=== PATIENT | female | born 2005 | race Caucasian/White ===

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

== ENCOUNTER 2024-05-15 07:00 | Outpatient (RCR) | payer OTHER, SELFPAY ==
--- NOTE | 2024-03-25 09:53 | HP.PTEVAL_ITS ---
Patient's Visit Information Visit Information Visit Information: MONSERRAT ROBERTS is a 19 year old F referred to Physical Therapy by Benjamin Schultz PA-C with a diagnosis of PATELLOFEMERAL DISORDER ,LEFT KNEE ,PAIN LEFT KNEE. Date of Evaluation: 03/25/24 Physical Therapist: Eulalio Jang, PT, Cert MDT, OCS Visit Plan Frequency: 2x /Week Duration: 4 Weeks Plan: PT INTERVENTIONS QUADS/HAMS /HIP ( GLUT MEDIUS ) , CLOSED CHAIN STRENGTHENING ,PROPRIOCEPTION ,AND FUNCTIONAL STRENGTHENING Subjective Subjective: This 19 y/o female presents to physical therapy with left knee pain. Patient developed left knee pain ~ 1 month. Patient symptoms where insidious onset. Patient seen Nathan BOOTHE at [facility]. Patient had x-rays and ordered a brace,. Pain located anterior knee. Aggravating squatting,extended standing , walking ,kneeling and stairs. Alleviating factors ibuprofen . Denies paresthesia/tingling. Sleeping okay. Patient has no injury in past. Patient condition affects QOL and job demands. Patient goals decrease pain.Patient has orthotics. SOCIAL: SINGLE VOCATION: Hairdresser Pain Left Knee: Pain Intensity (Out of 10): 2 Pain Intensity Range: 10 Objective Objective: POSTURE: bilateral knee valgus ,pes planus ,genu recurvatum GAIT: reciprocal pattern slight knee valgus PALAPTION: unremarkable QUAD CONTRACTION: lateral deviation AROM: supine knee flexion 0-135 degrees MMT: 4/5 quads/hams .hip flexion ( peak force) hip abd 25.8 left ,right 28.1 SLS squats: knee valgus left Special Tests R Knee Saundra - Meniscus: Negative R Knee Valgus - MCL: Negative R Knee Varus - LCL: Negative R Knee Patellar Apprehension - PFS: Positive R Knee Patellar Grind - PFS: Negative Balance/Special Test Scores Lower Extremity Functional Score: 59 Goals Goal 1:: Patient to be I with HEP knee Goal Time Frame: 4-6 Weeks Goal 2:: Patient to 75% improvement with increase function and less pain Goal Time Frame: 4-6 Weeks Goal 3:: Patient improve LFES score by 5-10 points to improve QOL and function Goal Time Frame: 4-6 Weeks Goal 4:: Patient to improve peak force of glut medius ny 5-10 # to decrease pain and improved function Goal Time Frame: 4-6 Weeks Rehabilitation Potential Physical Therapy Diagnosis: 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 ,weakness hip glut ,lateral tilting patella and tracking with quad contraction and pain with activity thus benefit from skilled PT Rehabilitation Potential: Good Anticipated Interventions Patient/Client Instruction: Educate patient on: Condition and Plan of Care For the Purpose of:: To decrease pain, To increase ROM, To improve muscle performance and motor function, To improve ability to perform ADL's, To increase tolerance to activity/condition/position, To improve ability of physical actions for home/community/work/leisure, To improve health of tissue, To decrease soft tissue restriction, To increase flexibility/ROM, To improve endurance and To improve balance Therapeutic Exercise to Include: Strength training, Endurance training, Balance training, Flexibilty training and Active ROM Comment: QUADS/HAMS/HIP GLUT MEDIUS For the Purpose of:: To decrease pain, To increase ROM, To improve muscle performance and motor function, To increase tolerance to activity/condition/position, To improve ability of physical actions for home/community/work/leisure, To improve health of tissue, To decrease soft tissue restriction, To increase flexibility/ROM and To improve balance Text: Thank you for the opportunity to evaluate your patient. For Medicare and Medicare HMO plans, please review the plan of care and approve it. It will need to be FAXED BACK to us at [phone] for Medicare purposes. For Medicare only, by signing this I certify the plan of care. Please let me know if there are questions or concerns regarding this plan of care. Physician Signature: Date:
--- NOTE | 2024-05-15 08:09 | HP.PTDCSUM ---
Discharge Summary D/C summary: It has been my pleasure to treat MONSERRAT ROBERTS referred by Benjamin Schultz PA-C, with the diagnosis of PATELLOFEMERAL DISORDER ,LEFT KNEE ,PAIN LEFT KNEE for a total of 15 visit(s). Discharge Date: Please see the following information for a summary of their discharge status. Subjective Subjective: Doing well Pain Left Knee: Pain Intensity (Out of 10): 0 Overall Improvement % Improvement: 90 Objective Objective/Function: POSTURE: bilateral knee valgus ,pes planus ,genu recurvatum GAIT: reciprocal pattern slight knee valgus PALAPTION: unremarkable QUAD CONTRACTION: lateral deviation AROM: supine knee flexion 0-135 degrees MMT: 4/5 quads/hams .hip flexion ( peak force) hip abd 32.68 left ,right 35.1 SLS squats: knee valgus left Goals Goal 1:: Patient to be I with HEP knee Goal Progress: Goal Met Goal 2:: Patient to 75% improvement with increase function and less pain Goal Progress: Goal Met Goal 3:: Patient improve LFES score by 5-10 points to improve QOL and function Goal Progress: Goal Met Goal 4:: Patient to improve peak force of glut medius ny 5-10 # to decrease pain and improved function Goal Progress: Goal Met Plan Plan: D/C TO GYM AND HEP D/C Information d/c sentence: If there are questions or concerns regarding this patient's physical therapy, please feel free to call me at [phone]. Thank you for the referral of this patient. Sincerely, Eulaloi Jang, PT, Cert MDT, OCS Balance/Gait/Functional tests Balance/Special Test Scores Lower Extremity Functional Score: 80 Improvement % Improvement: 90
== END 2024-05-15 13:24 | disposition home or self-care (01) ==
LOC: PT 07:00
PROVIDERS: PCP Pediatrics; Referring Provider Physician Assistant Surgical; Visit Provider Physician Assistant Surgical
DX: M22.2X2 Patellofemoral disorders, left knee (principal); M25.562 Pain in left knee
CPT/HCPCS: 97110; 97162; 97530

== ENCOUNTER → 2025-04-19 | Outpatient (CLI) | payer OTHER, SELFPAY ==
[2025-04-19 17:27] LABS: Hematocrit 44.1 % (37-47); Hemoglobin 14.2 g/dL (12.0-15.0); Immature Granulocytes Count 0.020 X10^3/uL (0.0-0.0); Mean Corp Hgb Conc 32.2 g/dL (32-36); Mean Corpuscular Volume 87.8 fL (81-99); Mean Platelet Vol. 10.7 fl (6.2-12.0); NRBC Flagged by Analyzer 0 % (0-5); Platelet Count 476 K/mm3 (150-450); RBC Distribution Width CV 12.1 % (11.6-14.6); RBC Distribution Width SD 38.8 fl (35.1-43.9); Red Blood Count 5.02 M/mm3 (4.2-5.4); White Blood Count 7.8 K/mm3 (4.4-11.0)
[2025-04-22 07:08] LABS: Chlamydia By Nucleic Acid AMP Positive (Negative); Gonococcus By Nucleic Acid AMP Negative (Negative)
== END | disposition home or self-care (01) ==
PROVIDERS: PCP Pediatrics; Visit Provider Obstetrics & Gynecology
DX: R63.5 Abnormal weight gain (principal); Z11.3 Encounter for screening for infections with a predominantly sexual mode of transmission; Z12.4 Encounter for screening for malignant neoplasm of cervix
CPT/HCPCS: 36415; 84439; 84443; 85025; 86376; 87491; 87591; 88175; G0145

== ENCOUNTER → 2025-05-28 | Outpatient (CLI) | payer OTHER, SELFPAY ==
--- OUTSIDE RECORDS SUMMARY | 2025-05-28 17:15 | XMS RPT_ITS | CCD ---
Author Organization [facility] Care Team Providers Care Personnel Scheduler Name Role Phone VIOLET SOLIS Attending Unavailable VIOLET SOLIS Referring Unavailable MICKY ANDERSEN Attending Unavailable VIOLET SOLIS Attending Unavailable MICKY ANDERSEN Attending Unavailable Unavailable Primary Care Provider Unavailabl e REFERRED, SELF Referring Unavailable PACKER, PAPI A Primary Care Unavailable JENNA GARCIA Attending Unavailable PAPI APCKER A Attending Unavailable PACKER, PAPI A Primary Care Unavailable REFERRED, SELF Referring Unavailable Unavailable Primary Care Provider Unavailabl e XU LUQUE Attending Unavailable LUQUEXU Attending Unavailable Packer, Papi Primary Care Unavailable EshenaurNathan Attending Unavailable Eshenaur, Ray Referring Unavailable Packer, Papi Primary Care Unavailable Esha Valentino Attending Unavailable MarcanthEsha moreno Attending Unavailable Packer, Papi Primary Care Unavailable Packer, Papi Referring Unavailable Packer, Papi Primary Care Unavailable Packer, Papi Referring Unavailable Esha Valentino Attending Unavailable Packer, Papi Primary Care Unavailable Packer, Papi Referring Unavailable Esha Valentino Attending Unavailable Allergies Allergy Classification Reported Allergen(s) Allergy Type Date of Onset Reaction(s) Facility (2 sources) Grass pollen; Translations: [grass pollen] Allergy to substance 2 UNKNOWN [facility] (2 sources) Tree and shrub pollen; Translations: [tree and shrub pollen] Allergy to substance 2 UNKNOWN [facility] (6 sources) cat dander; Translations: [cat dander] Allergy to substance 9 Unknown [facility] (1 source) dog dander Allergy to substance 2 UNKNOWN [facility] (5 sources) Other Propensity to adverse reactions 2 [facility] (1 source) Seasonal allergy; Translations: [SEASONAL ALLERGIES] Propensity to adverse reactions (disorder) 2 [facility] (4 sources) Grass pollen Drug Allergy 9 [facility] (4 sources) Pollen Propensity to adverse reactions 2 [facility] (4 sources) Dog Epithelium (Canis Lupus Familiaris) Allergy to substance 9 [facility] (1 source) dog dander Drug allergy (disorder) 5 [facility] Repository Medications Current Medications Medication Drug Class(es) Dates Sig (Normalized) Sig (Original) [id number] 200 actuat albuterol 0.09 mg/actuat metered dose inhaler (7 sources) beta2-Adrenergic Agonist Start: 10-19-2022 albuterol HFA 90 mcg/act inhaler 10/19/2022 Active Start: 10-05-2021 take 1 puff(s) by in halation every six hours Albuterol Sulfate (Proair Hfa) 90 mcg/actuation HFA aerosol inhaler Active 2 PUFF INHALATION EVERY 6 HOURS October 04, 2021 11:00pm Start: 09-25-2018 End: 06-20-2019 take 1 puff(s) by inhalation twice daily Albuterol Sulfate Discontinued 2 PUFF INHALATION TWICE A DAY September 24, 2018 11:00pm June 20, 2019 9:40am breath-actuated 120 actuat beclomethasone dipropionate 0.08 mg/actuat metered dose inhaler (4 sources) Corticosteroid Start: 05-18-2024 Qvar RediHaler 80 MCG/ACT inhaler Inhale 80 mcg 2 times daily. 05/18/2024 Active Drospirenone-Ethinyl Estradiol (9 sources) Progestin, Estrogen Start: 05-02-2023 Drospireno ne-Ethinyl Estradiol (Aparna (28)) 3-0.02 mg tablet Active 1 TABLET PO daily May 02, 2023 1:14pm Take active pills only for continuous cycling. Start: 02-21-2023 Aparna 3-0.02 M G tablet Daily as needed 02/21/2023 Active Start: 02-21-2023 End: 05-02-2023 Drospirenone-Ethinyl Estradi ol (Aparna (28)) 3-0.02 mg tablet Discontinued 1 TABLET PO daily February 21, 2023 6:53am May 02, 2023 1:14pm Start: 01-01-2022 End: 02-21-2023 Drospirenone-Ethinyl Estradi ol (Aparna (28)) 3-0.02 mg tablet Discontinued 1 TABLET PO daily January 01, 2022 1:57pm February 21, 2023 6:53am Start: 10-05-2021 End: 01-01-2022 Drospirenone-Ethinyl Estradi ol (Aparna (28)) 3-0.02 mg tablet Discontinued 1 TABLET PO daily October 04, 2021 11:00pm January 01, 2022 1:58pm Ethinyl Estradiol / Levonorgestrel (4 sources) Progestin, Estrogen, Progestin-containing Intrauterine Device Start: 07-06-2024 levonorgestrel-ethinyl estradiol (Seasonale) 0.15-0.03 MG tablet Take 1 tablet by mouth daily. 07/06/2024 Active 120 actuat fluticasone propionate 0.22 mg/actuat metered dose inhaler (7 sources) Corticosteroid Start: 02-19-2023 take 2 puff(s) by inhalation in the morning fluticasone (Flovent) 220 MCG/ACT inhaler Inhale 2 puffs in the morning and 2 puffs in the evening. 02/19/2023 Active Start: 10-05-2021 take 100 ug by inhal ation every twelve hours Fluticasone Propionate (Flovent Diskus) 100 mcg/actuation blister with device Active 2 INH INHALATION Q12H October 04, 2021 11:00pm Start: 09-25-2018 End: 10-05-2021 take 1 puff(s) by inhalation every four hours as needed Flovent 110 Mcg Discontinued 2 PUFF INHALATION EVERY 4 HOURS NEEDED September 24, 2018 11:00pm October 05, 2021 9:25am hydrocortisone 0.025 mg/mg topical ointment (1 source) Corticosteroid Start: 10-05-2021 Hydrocortisone Active 1 APPLIC TOPICAL TWICE A DAY 28.35 October 04, 2021 11:00pm loratadine 10 mg oral tablet (10 sources) Start: 10-05-2021 take 1 tablet by mouth once daily Loratadine (Claritin) 10 mg tablet Active 10 MG PO DAILY October 04, 2021 11:00pm take 1 tablet by mouth once elizabeth y loratadine (Claritin Reditabs) 10 MG disintegrating tablet Take 10 mg by mouth daily. Active magnesium oxide 400 mg oral tablet (5 sources) Start: 12-19-2022 take 1 tablet by mouth at bedtime magnesium oxide (Mag-Ox) 400 mg tablet Take 400 mg by mouth at bedtime. 12/19/2022 Active montelukast 10 mg oral tablet (11 sources) Leukotriene Receptor Antagonist Start: 06-15-2024 take 1 tablet by mouth once daily montelukast (Singulair) 10 MG tablet Take 10 mg by mouth Nightly. 06/15/2024 Active Start: 10-05-2021 take 1 tablet by jason th once daily Montelukast (Singulair) 10 mg tablet Active 10 MG PO DAILY October 04, 2021 11:00pm Start: 09-25-2018 End: 10-05-2021 take 5 mg by mouth once daily Singulair Discontinued 5 MG PO DAILY September 24, 2018 11:00pm October 05, 2021 9:25am naproxen 500 mg oral tablet (11 sources) Nonsteroidal Anti-inflammatory Drug Start: 10-05-2021 End: 02-21-2023 take 500 mg by mouth at mealtime Naproxen Active 500 MG PO 2 to 3 times per day 60 February 21, 2023 6:53am administer with food or milk take 1 tablet by jason th twice daily at mealtime naproxen (Naprosyn) 500 MG tablet Take 5 00 mg by mouth 2 times daily (with meals). Active ondansetron 4 mg disintegrating oral tablet (6 sources) Serotonin-3 Receptor Antagonist Start: 12-13-2022 take 2 tablets by mouth every twenty-four hours as needed ondansetron ODT (Zofran-ODT) 4 MG disintegrating tablet Take 8 mg by mouth Daily as needed 12/13/2022 Active Start: 09-25-2018 End: 06-20-2019 take 4 mg by mouth every eight hours as needed Ondansetron Discontinued 4 MG PO EVERY 8 HOURS NEEDED September 24, 2018 11:00pm June 20, 2019 9:40am oxymetazoline hydrochloride 10 mg/ml topical cream (4 sources) Start: 12-02-2023 Rhofade 1 % cr eam Apply 1 Application topically daily. 12/02/2023 Active riboflavin 100 mg oral tablet (5 sources) Start: 12-19-2022 riboflavin (vi tamin B2) 100 mg tablet tablet Take 400 mg by mouth in the morning. 12/19/2022 Active rimegepant 75 mg disintegrating oral tablet (13 sources) Start: 07-28-2024 End: 07-28-2025 take 1 tablet by mouth once daily as needed, then take 1 tablet by mouth every twenty-four hours as needed Rimegepant Sulfate (Nurtec) 75 MG tablet dispersible Indications: Migraine Dissolve 1 tablet (75 mg) by mouth once daily at onset of symptoms as needed for migraine treatment. Max dose: 75 mg in 24 hours. 24 tablet 3 11/13/2024 10:03 AM EDT 08/11/2024 Active Start: 05-08-2024 End: 07-28-2024 Nurtec 75 MG tablet dispersi ble 05/08/2024 07/28/2024 Discontinued (Reorder) Start: 03-16-2024 End: 04-15-2024 take 1 tablet by mouth every twenty-four hours as needed Rimegepant Sulfate (Nurtec) 75 MG tablet dispersible Indications: Migraine without aura and without status migrainosus, not intractable (CMS/HCC) Take 75 mg by mouth Daily as needed (1 tablet daily as needed for onset of migraine, max 1 dose in 24 hours.) 8 tablet 2 03/16/2024 04/15/2024 Active Completed/Discontinued Medications Medication Drug Class(es) Dates Sig (Normalized) Sig (Original) azithromycin 250 mg oral tablet (1 source) Macrolide Antimicrobial Start: 09-25-2018 End: 06-20-2019 take 2 tablets by mouth once daily, then take 1 tablet by mouth once daily Azithromycin Discontinued 250 MG PO DIRECTED September 24, 2018 11:00pm June 20, 2019 9:40am TAKE 2 TABLETS 1ST DAY THEN 1 TABLET DAILY FOR NEXT 4 DAYS. predniSONE 20 mg oral tablet (1 source) Start: 06-20-2019 End: 06-25-2019 take 20 mg by mouth once daily Prednisone Discontinued 20 MG PO DAILY 5 June 20, 2019 12:00am June 25, 2019 12:08am rizatriptan 10 mg oral tablet (5 sources) Serotonin-1b and Serotonin-1d Receptor Agonist Start: 06-10-2023 End: 05-08-2024 rizatriptan (Maxalt) 10 MG tablet Indications: Migraine without aura and without status migrainosus, not intractable (CMS/HCC) Take 1 tablet (10 mg) by mouth 1 (one) time if needed for migraine (may repeat x1) May repeat in 2 hours if unresolved. Do not exceed 30 mg in 24 hours. 9 tablet 2 06/10/2023 05/08/2024 Discontinued SUMAtriptan 100 mg oral tablet (5 sources) Serotonin-1b and Serotonin-1d Receptor Agonist Start: 04-01-2023 End: 05-08-2024 take 1 tablet by mouth once SUMAtriptan (Imitrex) 100 MG tablet Indications: Migraine without aura and without status migrainosus, not intractable (CMS/HCC) Take 1 tablet (100 mg) by mouth 1 (one) time if needed for migraine (may repeat x1) for up to 27 doses. 9 tablet 2 04/01/2023 05/08/2024 Discontinued Problems Problem Classification Problem Date Documented Da te Episodic/Chronic Abdominal hernia (1 source) Hiatal hernia; Translations: [Diaphragmatic hernia without obstruction or gangrene] 10-05-2021 Episodic Allergic reactions (1 source) Allergic condition; Translations: [Allergy, unspecified, initial encounter] 10-05-2021 Episodic Asthma (1 source) Asthma; Translations: [Unspecified asthma, uncomplicated] 10-05-2021 Chronic Headache; including migraine (16 sources) Migraine without aura, not refractory ; Translations: [Migraine without aura, not intractable, without status migrainosus] Onset: 04-01-2023 05-08-2024 Chronic Menstrual disorders (1 source) Dysmenorrhea; Translations: [Dysmenorrhea, unspecified] 01-01-2022 Chronic Other nutritional; endocrine; and metabolic disorders (1 source) Abnormal weight gain; Translations: [Abnormal weight gain] Onset: 04-25-2025 Episodic Results Test Name Value Interpretation Reference Range Facility PAP I-G w/rfx hrHPV-Aptimaon 04-23-2025 ADEQ Comment Normal . [facility] Comment on above: Order Comment: Speci men Comment: [id number] Specimen Comment: No. of containers..01 ThinPrep Vial Result Comment: Sati sfactory for evaluation. Endocervical and/or squamous metaplastic cells (endocervical component) are present. Performed By: #### L 7000.1800, L7400.0353 #### [facility] [address] [place], [address] COMM . Normal . [facility] Comment on above: Order Comment: Speci men Comment: [id number] Specimen Comment: No. of containers..01 ThinPrep Vial Performed By: #### L 7000.1800, L7400.0353 #### [facility] [address] [place], [address] COMMENT Comment Normal . [facility] Comment on above: Order Comment: Speci men Comment: [id number] Specimen Comment: No. of containers..01 ThinPrep Vial Result Comment: This liquid based ThinPrep(R) pap test was interpreted using the Windeln.de(R) Genius(TM) Cervical Algorithm whole slide imaging system. Performed By: #### L 7000.1800, L7400.0353 #### [facility] [address] [place], [address] DIAG Comment Normal . [facility] Comment on above: Order Comment: Speci men Comment: [id number] Specimen Comment: No. of containers..01 ThinPrep Vial Result Comment: NEGA TIVE FOR INTRAEPITHELIAL LESION OR MALIGNANCY. Performed By: #### L 7000.1800, L7400.0353 #### [facility] [address] [place], [address] HPV RFLX Comment Normal . [facility] Comment on above: Order Comment: Speci men Comment: [id number] Specimen Comment: No. of containers..01 ThinPrep Vial Result Comment: The HPV DNA reflex criteria were not met with this specimen result therefore, no HPV testing was performed. Performed at: - [facility] [address] [place] [id number] [employer] Member: Koki Martinez MD, Phone: [phone] Performed By: #### L 7000.1800, L7400.0353 #### [facility] [address] [place], [address] PAPSMR Comment Normal . [facility] Comment on above: Order Comment: Speci men Comment: [id number] Specimen Comment: No. of containers..01 ThinPrep Vial Result Comment: The Pap smear is a screening test designed to aid in the detection of premalignant and malignant conditions of the uterine cervix. It is not a diagnostic procedure and should not be used as the sole means of detecting cervical cancer. Both false-positive and false-negative reports do occur. Performed By: #### L 7000.1800, L7400.0353 #### [facility] [address] [place], [address] PERFORM Comment Normal . [facility] Comment on above: Order Comment: Speci men Comment: [id number] Specimen Comment: No. of containers..01 ThinPrep Vial Result Comment: Aysha Espinosa, Supervisor [employer] (ASCP) Performed By: #### L 7000.1800, L7400.0353 #### [facility] [address] [place], [address] Chlamydia/GC KRISTOPHER aptimaon CHLAMY,NUC ACID Positive Abnormal Negative [facility] Comment on above: Result Comment: Clie nt Requested Flag Performed By: #### L 7000.1800, L7400.0353 #### [facility] [address] [place], [address] GC BY NUC ACID Negative Normal Negative [facility] Comment on above: Result Comment: Perf ormed at: = - [facility] [address], [place] [id number] [employer] Member: Koki Martinez MD, Phone: [phone] Performed By: #### L 7000.1800, L7400.0353 #### [facility] [address] [place], [address] Thyroid Peroxidase ABon - THYR PEROX AB 12 IU/mL Normal 0-34 [facility] Comment on above: Result Comment: Perf ormed at: - [facility] [address] [id number] [employer] Member: Bassem Mayberry PhD, Phone: [phone] Performed By: #### L 501.9520, L100.0100, L3300.6900, L506.0400 #### [facility] [address] [place], [address] CBC W/Diff, Automatedon 03-25 Absolute Lymph 2.36 X10 3/uL Normal 0.83-4.51 [facility] Comment on above: Performed By: #### L 501.9520, L100.0100, L3300.6900, L506.0400 #### [facility] [address] [place], [address] Absolute Neut 4.4 X10 3/uL Normal 2.0-7.7 [facility] Comment on above: Performed By: #### L 501.9520, L100.0100, L3300.6900, L506.0400 #### [facility] [address] [place], [address] Basophils/100 WBC (Bld) 0.6 % Normal 0-1 [facility] Comment on above: Performed By: #### L 501.9520, L100.0100, L3300.6900, L506.0400 #### [facility] [address] [place], [address] Eosinophils/100 WBC (Bld) 4.1 % Normal 0-5 [facility] Comment on above: Performed By: #### L 501.9520, L100.0100, L3300.6900, L506.0400 #### [facility] [address] [place], [address] Erythrocyte distribution width (RBC) [Ratio] 12.1 % Normal 11.6-14.6 [facility] Comment on above: Performed By: #### L 501.9520, L100.0100, L3300.6900, L506.0400 #### [facility] [address] [place], [address] Hematocrit (Bld) [Volume fraction] 44.1 % Normal 37-47 [facility] Comment on above: Performed By: #### L 501.9520, L100.0100, L3300.6900, L506.0400 #### [facility] [address] [place], [address] Hemoglobin (Bld) [Mass/Vol] 14.2 g/dL Normal 12.0-15.0 [facility] Comment on above: Performed By: #### L 501.9520, L100.0100, L3300.6900, L506.0400 #### [facility] [address] [place], [address] IG% 0.300 Normal 0.0-0.9 [facility] Comment on above: Result Comment: IG% - Immature Granulocytes (promyelocytes, myelocytes and metamyelocytes) > 1% indicates that a LEFT SHIFT is Present. Performed By: #### L 501.9520, L100.0100, L3300.6900, L506.0400 #### [facility] [address] [place], [address] Lymphocytes/100 WBC (Bld) 30.5 % Normal 19-41 [facility] Comment on above: Performed By: #### L 501.9520, L100.0100, L3300.6900, L506.0400 #### [facility] [address] [place], [address] MCH (RBC) [Entitic mass] 28.3 pg Normal 27.0-32.0 [facility] Comment on above: Performed By: #### L 501.9520, L100.0100, L3300.6900, L506.0400 #### [facility] [address] [place], [address] MCHC (RBC) [Mass/Vol] 32.2 g/dL Normal 32-36 [facility] Comment on above: Performed By: #### L 501.9520, L100.0100, L3300.6900, L506.0400 #### [facility] [address] [place], [address] MCV (RBC) [Entitic vol] 87.8 fL Normal 81-99 [facility] Comment on above: Performed By: #### L 501.9520, L100.0100, L3300.6900, L506.0400 #### [facility] [address] [place], [address] Monocytes/100 WBC (Bld) 7.7 % Normal 0-10 [facility] Comment on above: Performed By: #### L 501.9520, L100.0100, L3300.6900, L506.0400 #### [facility] [address] [place], [address] Neutrophils/100 WBC (Bld) 56.8 % Normal 47-70 [facility] Comment on above: Performed By: #### L 501.9520, L100.0100, L3300.6900, L506.0400 #### [facility] [address] [place], [address] Nucleated RBC (Bld) [#/Vol] 0 10*3/uL Normal 0-5 [facility] Comment on above: Performed By: #### L 501.9520, L100.0100, L3300.6900, L506.0400 #### [facility] [address] [place], [address] Platelet mean volume (Bld) [Entitic vol] 10.7 fL Normal 6.2-12.0 [facility] Comment on above: Performed By: #### L 501.9520, L100.0100, L3300.6900, L506.0400 #### [facility] [address] [place], [address] Platelets (Bld) [#/Vol] 476 10*3/uL High 150-450 [facility] Comment on above: Performed By: #### L 501.9520, L100.0100, L3300.6900, L506.0400 #### [facility] [address] [place], [address] RBC (Bld) [#/Vol] 5.02 10*6/uL Normal 4.2-5.4 [facility] Comment on above: Performed By: #### L 501.9520, L100.0100, L3300.6900, L506.0400 #### [facility] [address] [place], [address] RDW SD 38.8 fl Normal 35.1-43.9 [facility] Comment on above: Performed By: #### L 501.9520, L100.0100, L3300.6900, L506.0400 #### [facility] [address] [place], [address] WBC (Bld) [#/Vol] 7.8 10*3/uL Normal 4.4-11.0 [facility] Comment on above: Performed By: #### L 501.9520, L100.0100, L3300.6900, L506.0400 #### [facility] [address] [place], [address] [facility] Visit Reporton 04-19-2025 [facility] Visit Report [facility] [address], [address] [place] [address] OFFICE VISIT Date of Service: 04/19/25 MR#: [id number] Acct: [id number] Name: ABEBE DIAMOND Rep #: [id number] 29 : 2005 Provider: Dr. Esha hoffmann MD Age/Sex: 20/F Location: [facility] Status: Signed Intake Vital Signs 06/26/24 11:13 04/19/25 13:32 04/19/25 13:46 Height 5 ft 2 in 5 ft 2 in Weight: 156 lb 174 lb 4 oz BMI 28.5 31.8 BP 142/106 H 152/102 H 139/99 H Intake Visit Reasons: Annual (CHAIR) [employer] Required: No Is patient in pain?: Yes (back pain from injury) Allergies cat dander Allergy (Mild, Verified 04/19/25 13:34) UNKNOWN dog dander Allergy (Mild, Verified 04/19/25 13:34) UNKNOWN grass pollen Allergy (Mild, Verified 04/19/25 13:34) UNKNOWN tree and shrub pollen Allergy (Mild, Verified 04/19/25 13:34) UNKNOWN Medications ???Medication ???Instructions ???Recorded ???Confirmed ???Type albuterol sulfate 90 mcg/actuation 2 puff inhalation Q6H PRN 04/19/25 History aerosol inhaler (ProAir HFA) loratadine 10 mg tablet (Claritin) 10 mg PO DAILY 10/05/21 04/19/25 History montelukast 10 mg tablet 10 mg PO DAILY 10/05/21 04/19/25 H istory (Singulair) naproxen 500 mg tablet 500 mg PO BID-TID PRN pain #60 tab s 02/21/23 04/19/25 Rx rimegepant 75 mg disintegrating 75 mg PO ONCE PRN 04/08/24 5 History tablet (Nurtec ODT) beclomethasone dipropionate 80 1 inh inhalation BID 10/27/25 10/2 7/25 History mcg/actuation HFA breath activated aerosol (Qvar RediHaler) Is last menstrual period known: No Post menopausal: No Patient : No : No PFSH Medical History (Updated 04/19/25 @ 13:[address] Esha Valentino MD) Migraine headache Asthma Surgical History S/P wisdom tooth extraction History of placement of ear tubes S/P tonsillectomy and adenoidectomy Family History Other Hypertension Social History (Updated 04/19/25 @ 13:38 by Delmy Borja) household members: family number of children: 0 current occupational status: employed current occupation: Nanny, retail department manager hairdresser sexually active: No Smoking Status: Never smoker alcohol intake: never substance use type: does not use caffeine: Yes what type of physical activity do you participate in: other details: cheerleading, marching band seatbelt use: always do you feel safe at home: Yes additional social history: Single HPI Encounter for routine gynecological examination Details: ABEBE DIAMOND is a 20 year old who presents for annual exam. Last PAP: due today History of abnormal PAP: Last mammogram: History of abnormal mammogram: not due Colon cancer screening: not due Other preventative health care screenings: PCP [facility] Female Reproductive History Cycle Length: >35 Questions: metrorrhagia: No, sexually active: Yes, dyspareunia: No and PCB: No Menopausal Symptoms: No hot flashes, No night sweats, No weight change, No mood changes, No difficulty concentrating, No sleep problems and No change in libido ROS Const Constitutional: Reports as per HPI; Denies fatigue, increased appetite, poor appetite, night sweats, weight gain or weight loss Cardio Card: Denies chest pain Resp Resp: Denies cough or dyspnea GI GI: Reports as per HPI; Denies abdominal pain, bloating, constipation, nausea or vomiting : Reports as per HPI and other; Denies difficulty voiding, dysuria, hematuria, hot flashes, nipple discharge, pelvic pain, prolapse symptoms, urinary frequency, urinary incontinence, urinary urgency, vaginal discharge, vaginal dryness, vaginal odor or vaginal pruritus Skin Skin/Breast: Denies changing lesions, breast mass, breast pain, breast skin changes or nipple discharge Psych Psych: Denies anxiety, change in libido, depression or difficulty concentrating Exam Const General: cooperative, healthy appearing, comfortable, no acute distress, well developed and well groomed [facility] Head: normal to inspection and normocephalic Ears: hearing grossly normal bilaterally and external ears normal Nose: external nose normal Face and sinus: normal facial exam Neck Neck: normal visual inspection, full ROM and no lymphadenopathy Thyroid: thyroid normal Chest Chest palpation inspection: normal inspection of the chest Breast inspection: normal inspection of the breasts and normal inspection of the axillae Breast palpation: normal palpation of the breasts, normal palpation of the axillae and no axillary lymphadenopathy Resp Effort Inspection: normal respiratory effort GI Inspection: normal to inspection and non-distended Palpation: soft, no hepatosple (more content not included)... Normal [facility] T4 Free Directon 04-19-2025 T4 FREE DIRECT 0.90 ng/dL Normal 0.76-1.46 [facility] Comment on above: Performed By: #### L 501.9520, L100.0100, L3300.6900, L506.0400 #### [facility] [address] [facility] [place], [address] Thyroid Stim Hormone (TSH)on 04-19-2025 TSH 3.360 uIU/mL Normal 0.300-4.200 [facility] Comment on above: Performed By: #### L 501.9520, L100.0100, L3300.6900, L506.0400 #### [facility] [address] [place], [address] Office Visiton 01-26-2025 Follow-up visit [id number] Santo Diamond 2005 F Date Provider Department Center 01/26/2025 [id number] ADHIKARI [facility] P None No family history on file Level of Service:28284 [facility] OFFICE/OUTPATIENT ESTABLISHED LOW MDM 20 MIN Reason for Visit and Comments: Follow-up [579018] Migraine [920486] Normal [facility] Progress Noteon 01-26-2025 Progress Note Department of Neurol ogical Sciences Visit Note CHIEF COMPLAINT: Chief Complaint Patient presents with Follow-up Migraine Main diagnoses: Migraine without aura, not intractable HISTORY OF PRESENT ILLNESS: The patient is a 19 y.o. female today presents to the Neurology clinic with history of migraine without aura, not intractable. Today patient presented to the neurology clinic for a follow-up visit. Patient reports that she has been doing very well. Patient did have approximately 2-3 migraines a month and she did take Nurtec with 100% efficacy. She denied any side effect from medication. Patient tried to follow a low tyramine diet. Evidently patient tried to avoid caffeine. Patient denied any other neurological symptoms. Secundary diagnoses: Asthma Medications: Current Medications[1] Allergies: Pollen extract, Cat dander, Dog epithelium (canis lupus familiaris), and Grass pollen(k-o-r-t-swt charmaine) Social History: Social History Socioeconomic History Marital status: Single Spouse name: Not on file Number of children: Not on file Years of education: Not on file Highest education level: Not on file Occupational History Not on file Tobacco Use Smoking status: Never Smokeless tobacco: Never Substance and Sexual Activity Alcohol use: Not on file Drug use: Not on file Sexual activity: Not on file Other Topics Concern Not on file Social History Narrative Not on file Social Drivers of Health Financial Resource Strain: Not on file Food Insecurity: Not on file Transportation Needs: Not on file Physical Activity: Not on file Stress: Not on file Social Connections: Not on file Intimate Partner Violence: Not on file Housing Stability: Not on file Family History: Family History[2] REVIEW OF SYSTEMS: Review of Systems Constitutional: Positive for fatigue. HENT: Negative. Phonophobia Eyes: Positive for photophobia and visual disturbance. Respiratory: Negative. Cardiovascular: Negative. Gastrointestinal: Positive for nausea. Endocrine: Negative. Genitourinary: Negative. Musculoskeletal: Positive for neck pain and neck stiffness. Skin: Negative. Allergic/Immunologic: Negative. Neurological: Positive for dizziness, light-headedness and headaches. Hematological: Negative. Psychiatric/Behavioral: The patient is nervous/anxious. PHYSICAL EXAM: Vitals: BP 134/87 Pulse 67 Temp 37.2 ?C (98.9 ?F) (Infrared) Physical Exam Constitutional: Appearance: Normal appearance. HENT: Head: Normocephalic and atraumatic. Nose: Nose normal. Mouth/Throat: Mouth: Mucous membranes are moist. Pharynx: Oropharynx is clear. Eyes: General: Vision grossly intact. Gaze aligned appropriately. Extraocular Movements: Extraocular movements intact. Conjunctiva/sclera: Conjunctivae normal. Pupils: Pupils are equal, round, and reactive to light. Neck: Trachea: Trachea and phonation normal. Cardiovascular: Rate and Rhythm: Normal rate and regular rhythm. Pulses: Normal pulses. Heart sounds: Normal heart sounds. Pulmonary: Effort: Pulmonary effort is normal. Breath sounds: Normal breath sounds. Abdominal: General: Abdomen is flat. Bowel sounds are normal. Palpations: Abdomen is soft. Musculoskeletal: General: Normal range of motion. Cervical back: Normal range of motion and neck supple. Skin: General: Skin is warm and dry. Neurological: General: No focal deficit present. Mental Status: She is alert and oriented to person, place, and time. Mental status is at baseline. Cranial Nerves: Cranial nerves 2-12 are intact. Deep Tendon Reflexes: Reflexes are normal and symmetric. Reflex Scores: Tricep reflexes are 2+ on the right side and 2+ on the left side. Bicep reflexes are 2+ on the right side and 2+ on the left side. Brachioradialis reflexes are 2+ on the right side and 2+ on the left side. Patellar reflexes are 2+ on the right side and 2+ on the left side. Achilles reflexes are 2+ on the right side and 2+ on the left side. Psychiatric: Attention and Perception: Attention normal. Mood and Affect: Mood normal. Speech: Speech normal. Behavior: Behavior normal. Behavior is cooperative. Thought Content: Thought content normal. Cognition and Memory: Cognition normal. Judgment: Judgment normal. Impression: Diagnosis Plan 1. Migraine without aura and without status migrainosus, not intractable Plan: 1. Patient appears to be doing well we are going to maintain patient on Nurtec at the same doses. 2. New prescription was sent to [facility] retail pharmacy. 3. Patient will continue a low tyramine diet. 4. Patient will return to the neurology clinic in 1 year for further evaluation Xu Luque MD [1] Current Outpatient Medications Medication Sig Dispense Refill levonorgestrel-ethinyl estradiol (Seasonale) 0.15-0.03 MG tablet Take 1 tablet by mouth daily. loratadine (Claritin Reditabs) 10 MG disintegrat (more content not included)... [facility] 36on 08-11-2024 36 Requested Prescripti ons Signed Prescriptions Disp Refills Rimegepant Sulfate (Nurtec) 75 MG tablet dispersible 24 tablet 3 Sig: Dissolve 1 tablet (75 mg) by mouth once daily at onset of symptoms as needed for migraine treatment. Max dose: 75 mg in 24 hours. Authorizing Provider: LEONOR ISIDRO [facility] 36on 08-07-2024 36 SHSP working on PA [facility] 36on 08-06-2024 36 Name of caller: Robb marcus Contact phone number: [phone] Relationship to Patient: family member mother Provider: Dr Luque Practice: Neurology Chief Complaint/Reason for Call: Prior authorization is required for Nurtec 75 MG tablet dispersible Please send prior authorization or contact pt or Shannon to discuss. Best time of day caller can be reached: Any Patient advised that office/PCP has 24-48 business hours to return their call: Yes [facility] Office Visiton 07-28-2024 Follow-up visit [id number] Santo Diamond 2005 F Date Provider Department Center 07/28/2024 [id number] LUQUE [facility] None No family history on file Level of Service:98910 [facility] OFFICE/OUTPATIENT NEW LOW MDM 30 MINUTES Reason for Visit and Comments: New Patient [542] - Migraines [facility] Progress Noteon 07-28-2024 Progress Note Department of Neurol ogical Sciences Initial Consult Note CHIEF COMPLAINT: Chief Complaint Patient presents with New Patient Migraines Reason for Consult: Migraine without aura, no intractable HISTORY OF PRESENT ILLNESS: The patient is a 19 y.o. female who presents with history of migraine without aura, intractable. Today patient presented to the neurology clinic for evaluation and treatment of her migraine headaches. Patient reports that currently she is doing very well. She only had 1 or 2 migraines a month. Medication MarchApril 2024 patient have very frequent migraine headaches. 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 Patient denies change jobs and moved to a new hair salon and patient is significantly more relaxed. Since then patient headaches are improved significantly. In the past patient have an MRI of the brain which were reported to be normal. Patient is taking Nurtec for the acute episode of headaches and she reported that works at least 80% of the time. She denied any side effect from medication. Patient headaches are usually bilateral throbbing, associated with photophobia phonophobia and nausea. At time patient is unable to work during the headache. Patient have had positive family history of migraine headaches. Her mother has also migraines. Patient denied any auras. Patient denied any other medical problems. Patient reported that she is trying to avoid food that can cause headaches.. Past Medical History: No past medical history on file. Past Surgical History: No past surgical history on file. Medications: Current Outpatient Medications Medication Sig Dispense Refill levonorgestrel-ethinyl estradiol (Seasonale) 0.15-0.03 MG tablet Take 1 tablet by mouth daily. loratadine (Claritin Reditabs) 10 MG disintegrating tablet Take 10 mg by mouth daily. montelukast (Singulair) 10 MG tablet Take 10 mg by mouth Nightly. naproxen (Naprosyn) 500 MG tablet Take 500 mg by mouth 2 times daily (with meals). Qvar RediHaler 80 MCG/ACT inhaler Inhale 80 mcg 2 times daily. Rhofade 1 % cream Apply 1 Application topically daily. Nurtec 75 MG tablet dispersible Take 1 tablet (75 mg) by mouth Once as needed (migraine). 8 tablet 11 No current facility-administered medications for this visit. Allergies: Pollen extract, Cat dander, Dog epithelium (canis lupus familiaris), and Grass pollen(k-o-r-t-swt charmaine) Social History: Social History Socioeconomic History Marital status: Single Spouse name: Not on file Number of children: Not on file Years of education: Not on file Highest education level: Not on file Occupational History Not on file Tobacco Use Smoking status: Never Smokeless tobacco: Never Substance and Sexual Activity Alcohol use: Not on file Drug use: Not on file Sexual activity: Not on file Other Topics Concern Not on file Social History Narrative Not on file Social Drivers of Health Financial Resource Strain: Not on file Food Insecurity: Not on file Transportation Needs: Not on file Physical Activity: Not on file Stress: Not on file Social Connections: Not on file Intimate Partner Violence: Not on file Housing Stability: Not on file Family History: No family history on file. REVIEW OF SYSTEMS: Review of Systems Constitutional: Positive for fatigue. HENT: Negative. Phonophobia Eyes: Positive for photophobia and visual disturbance. Respiratory: Negative. Cardiovascular: Negative. Gastrointestinal: Positive for nausea. Endocrine: Negative. Genitourinary: Negative. Musculoskeletal: Positive for neck pain and neck stiffness. Skin: Negative. Allergic/Immunologic: Negative. Neurological: Positive for dizziness, light-headedness and headaches. Hematological: Negative. Psychiatric/Behavioral: The patient is nervous/anxious. PHYSICAL EXAM: Vitals: BP 125/88 Pulse 84 Ht 5' 2 (1.575 m) Wt 155 lb (70.3 kg) BMI 28.35 kg/m? Physical Exam Constitutional: Appearance: Normal appearance. HENT: Head: Normocephalic and atraumatic. Nose: Nose normal. Mouth/Throat: Mouth: Mucous membranes are moist. Pharynx: Oropharynx is clear. Eyes: General: Vision grossly intact. Gaze aligned appropriately. Extraocular Movements: Extraocular movements intact. Conjunctiva/sclera: Conjunctivae normal. Pupils: Pupils are equal, round, and reactive to light. Neck: Trachea: Trachea and phonation normal. Cardiovascular: Rate and Rhythm: Normal rate and regular rhythm. Pulses: Normal pulses. Heart sounds: Normal heart sounds. Pulmonary: Effort: Pulmonary effort is normal. Breath sounds: Normal breath sounds. Abdominal: General: Abdomen is flat. Bowel sounds are normal. Palpations: Abdomen is soft. Musculoskeletal: General: Normal range of motion. Cervical back: Normal range of motion and nec (more content not included)... Normal [facility] Office Visit Reporton 06-26-2024 [facility] Office Visit Report [facility] [address], [address] [place] [address] OFFICE VISIT Date of Service: 06/26/24 MR#: [id number] Acct: [id number] Name: ABEBE DIAMOND Rep #: [id number] 20 : 2005 Provider: Dr. 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 [employer]ast Required: No Is patient in pain?: No Feel stressed/tense/nervous/anx ious/difficulty sleeping: not at all Allergies cat dander Allergy (Mild, Verified 06/26/24 11:11) UNKNOWN dog dander Allergy (Mild, Verified 06/26/24 11:11) UNKNOWN grass pollen Allergy (Mild, Verified 06/26/24 11:11) UNKNOWN tree and shrub pollen Allergy (Mild, Verified 06/26/24 11:11) UNKNOWN Medications ???Medication ???Instructions ???Recorded ???Confirmed ???Type albuterol sulfate 90 mcg/actuation 2 puff inhalation Q6H PRN 10/05/21 06/26/24 History aerosol inhaler (ProAir HFA) fluticasone propionate 100 2 inh inhalation Q12H 10/05/21 06/26/24 History mcg/actuation blister powder for inhalation (Flovent Diskus) hydrocortisone 2.5 % topical 1 applic topical BID #28.35 grams 10/05/21 06/26/24 Rx ointment loratadine 10 mg tablet (Claritin) 10 mg PO DAILY 10/05/21 06/26/24 History montelukast 10 mg tablet 10 mg PO DAILY 10/05/21 06/26/24 History (Singulair) naproxen 500 mg tablet 500 mg PO BID-TID PRN pain #60 tabs 02/21/23 06/26/24 Rx levonorgestrel 0.15 mg-ethinyl 1 tab PO QDAY #91 tabs 04/08/24 06/26/24 Rx estradiol 30 mcg tablets,3 mos pack(91) rimegepant 75 mg disintegrating 75 mg PO ONCE PRN 04/08/24 06/26/24 History tablet (Nurtec ODT) Post menopausal: No Patient : No : No PFSH Medical History Asthma Surgical History S/P wisdom tooth extraction History of placement of ear tubes S/P tonsillectomy and adenoidectomy Family History Other Hypertension Social History (Updated 06/26/24 @ 11:16 by Delmy Borja) household members: family current occupational status: employed current occupation: [employer] sexually active: No Smoking Status: Never smoker alcohol intake: never substance use type: does not use caffeine: Yes what type of physical activity do you participate in: other details: cheerleading, marching band seatbelt use: always do you feel safe at home: Yes additional social history: Single HPI 3 M FU Details: ABEBE DIAMOND is a 19 year old who presents for follow-up of breakthrough bleeding on control pills. She is doing much better on the current pill, headaches have resolved. Repeat blood pressure check shows normal blood pressures. She denies any significant complications or side effects. ROS Const Constitutional: Denies fatigue, fever(s), headache(s), increased appetite, poor appetite, weight gain or weight loss GI GI: Reports as per HPI; Denies abdominal pain, constipation, nausea or vomiting : Reports as per HPI; Denies difficulty voiding, dysuria, hematuria, pelvic pain, urinary frequency, urinary incontinence, urinary hesitancy, urinary urgency, vaginal discharge, vaginal dryness, vaginal odor, vaginal pruritus or other Exam Const General: cooperative, healthy appearing, comfortable, no acute distress and well developed Orientation: alert HENND Head: normal to inspection and normocephalic Ears: hearing grossly normal bilaterally and external ears normal Nose: external nose normal and nares normal Face and sinus: normal facial exam Neck Neck: normal visual inspection, no lymphadenopathy and trachea midline Thyroid: thyroid normal Resp Effort Inspection: normal respiratory effort Musc Other: gross motor intact no deficits, full bilateral strength Skin General: no rashes or lesions noted Neuro Motor: muscle tone normal throughout Coding Level of Care Code Off vis,est,level 3 Diagnoses Breakthrough bleeding on control pills N92.1 Dysmenorrhea in adolescent N94.6 Assessment and Plan Assessment and Plan (1) Breakthrough bleeding on control pills: Status: Acute Comment: switched to different ocp from [facility]. (2) Dysmenorrhea in adolescent: Status: Acute Comment: switched from A[facility] due to breakthrough bleeding. naproxen. fu annually. Plan Problem list updated and treatment plans were reviewed with the patient and relevant educational handouts given. See problem list details for specific plan information. 06/29/24 0757 Da (more content not included)... Normal [facility] Progress Noteon 06-26-2024 Hat Marker Authentication Interface Message Text Patient ID: Abebe Diamond is a 19 y.o. female. Her chief complaint(s) include: Pharyngitis and Cough Assessment 1. Acute bacterial sinusitis Plan Abebe was seen today for pharyngitis and cough. Diagnoses and associated orders for this visit: Acute bacterial sinusitis - amoxicillin-clavulanate (AUGMENTIN) 875-125 MG tablet; Take 1 Tablet (875 mg) by mouth 2 times daily for 10 days Return for Well Visit and as needed. Continues QVAR daily through Dr. Charles Abebe is not getting flu shot this year If no better in 4-5 days--> add Zithromax Subjective She is accompanied by her mother. Independent history obtained from mother. Pharyngitis (Several weeks). The pattern is episodic. The patient's symptoms have included a fever, congestion, rhinorrhea and cough (phlegmn). The patient felt warm per caregiver (tactile temperature). The patient has been exposed to sick contacts with similar symptoms at home . Cough Primary Care Review of Systems Objective Vital Signs 06/26/24 1248 Temp: 36.6 C (97.8 F) TempSrc: Temporal Weight: 70.3 kg Height: 157.5 cm Body mass index is 28.34 kg/m . Physical Exam Constitutional: She appears well. She is active. No distress. HENT: Head: Atraumatic. Ears: Right Ear: Tympanic membrane normal. Left Ear: Tympanic membrane normal. Nose: Nasal discharge present. Mouth/Throat: Mucous membranes are moist. Cardiovascular: Normal rate and regular rhythm. Heart murmur not heard. Pulmonary/Chest: Breath sounds normal. There is normal air entry. Neurological: She is alert. Normal [facility] PT D/C Summary (1)on 024 PT D/C Summary (1) [facility] [address] [place] [address]. [address] [place] [address] / REHABILITATION SERVICES DISCHARGE SUMMARY MR#: [id number] Acct: [id number] Name: ABEBE DIAMOND Rep #: [id number] : 2005 19 From: Eulalio Jang PT, Deyanira. MD Toro, OCS Referring Dr.: GARO Schultz Status: REG R CR Insurance: [employer]/[facility] SELF PAY INSURANCE Discharge Summary D/C summary: It has been my pleasure to treat ABEBE DIAMOND referred by Benjamin Schultz PA-C, with the diagnosis of PATELLOFEMERAL DISORDER ,LEFT KNEE ,PAIN LEFT KNEE for a total of 15 visit(s). Discharge Date: Please see the following information for a summary of their discharge status. Subjective Subjective: Doing well Pain Left Knee: Pain Intensity (Out of 10): 0 Overall Improvement % Improvement: 90 Objective Objective/Function: POSTURE: bilateral knee valgus ,pes planus ,genu recurvatum GAIT: reciprocal pattern slight knee valgus PALAPTION: unremarkable QUAD CONTRACTION: lateral deviation AROM: supine knee flexion 0-135 degrees MMT: 4/5 quads/hams .hip flexion ( peak force) hip abd 32.68 left ,right 35.1 SLS squats: knee valgus left Goals Goal 1:: Patient to be I with HEP knee Goal Progress: Goal Met Goal 2:: Patient to 75% improvement with increase function and less pain Goal Progress: Goal Met Goal 3:: Patient improve LFES score by 5-10 points to improve QOL and function Goal Progress: Goal Met Goal 4:: Patient to improve peak force of glut medius ny 5-10 # to decrease pain and improved function Goal Progress: Goal Met Plan Plan: D/C TO GYM AND HEP D/C Information d/c sentence: If there are questions or concerns regarding this patient's physical therapy, please feel free to call me at [phone]. Thank you for the referral of this patient. Sincerely, Eulalio Jang PT, Cert MDT, OCS Balance/Gait/Functional tests Balance/Special Test Scores Lower Extremity Functional Score: 80 Improvement % Improvement: 90 05/15/24 0956 CC: GARO Schultz; Dr. Papi Packer MD JLA Signed Normal [facility] Progress Noteon 07-09-2023 Hat Marker Authentication Interface Message Text Patient ID: Abebe Diamond is a 18 y.o. female. Her chief complaint(s) include: 18 YEAR WELL CHILD Assessment 1. Routine general medical examination at a health care facility Plan Abebe was seen today for 18 year well child. Diagnoses and associated orders for this visit: Routine general medical examination at a health care facility - PHQ9 Assessment With Score - Health Risk Assessment - CRAFFT Discussed diet and exercise. Anticipatory guidance issues reviewed. Patient followed by neurology to manage migraine headaches. transportation consultant to manage OCP/dysmenorrhea and ENT to manage asthma and allergies. Just had allergy shot yesterday at [facility]. No vaccines for at least 48 hours. Patient didn't want influenza or covid vaccine anyway. To follow up if any further questions or concerns. Return in about 1 year (around 07/09/2024) for well check. Subjective HPI Comments: Followed by neurology (Dr. Solis) for migraine, transportation consultant: Dr. Valentino who manages control. ENT: (Dr. Charles) helps manage allergies and asthma She is unaccompanied. 18 YEAR WELL CHILD Home: Abebe eats meals with family, has an adult to turn to for help and is permitted and able to make independent decisions. Abebe has no home risk identified and does not pay the bills (not yet). Education: Abebe is in the work force. (Completed the career center: [employer]. So far far work is going well). Activities & Sports: Abebe has a job, performs at least 1 hour of physical activity daily and engages in screen time less than 2 hours daily. Drugs: Abebe does not use tobacco, does not use drugs, does not use alcohol and does not vape. Safety: Abebe has a violence free home, has peer relationships free from violence and uses seat belt. Abebe does not use phone/text while driving. Sex: The patient has never had a sexual partner. The patient is interested in males. The patient's sexual orientation is heterosexual. The patient's gender identity is cisgender. Suicidality: Abebe has ways to cope with stress, displays self-confidence and has anxiety (some but not affecting work or interaction with other). Abebe has no problems with sleep, has no depression, does not have mood swings, has no suicidal ideation, has no homicidal ideation and is not engaged in counseling. PHQ-9 Score: 0 Menstruation Last Menstrual period: hormonal therapy and cannot remember (Menarche: age 9 or 10 LMP: Unsure due to the OCP interferring with menses) Output Urine and Stool Pattern: Urine and Stool Pattern: Normal stool pattern, no constipation, normal urine pattern, no nocturnal enuresis. Stool Consistency: soft Sleep Sleeping Difficulty: no difficulty sleeping Hours of sleep at a time: 7 (or more) Teen Anticipatory Guidance The following anticipatory guidance was reviewed during the visit: Nutrition: limit junk food/fast food and soft drinks. Safety: home safety and use safety helmet/gear with activities. Social: avoid or limit screen time and parental limits and consequences for unacceptable behavior. Health: age appropriate dental care, age appropriate sleep habits, elevated noise and hearing, avoid situations where drugs and alcohol are present, how to resist peer pressure to smoke, drink, use drugs, practice abstinence- the safest way to prevent and STDs, talk with trusted adult if feeling sad or nervous, discuss athletic conditioning/ weight training/weight supplements, learn to manage time and activities and be responsible for attendance/ homework/ course selection. Screenings Previous Vaccine Reactions: No. Life events information was reviewed-no referral needed (social determinant questionnaire completed: no concerns at this time) Tuberculosis Concerns: Negative Tuberculosis Screen Concerns: no exposure to Tb or person with positive ppd Hearing Vision Concerns: Patient wears glasses or contact lenses. The caregiver has no concerns about the patient's hearing. The caregiver has no concerns about the patient's vision. Patient is being seen by freight car loader or aqua ammonia operator. Hyperlipidemia Concerns: Negative Hyperlipidemia Screen Concerns: no parent or grandparent with OK angina peripheral or cerebrovascular disease <55 years and no parent with cholesterol >240mg/dl Primary Care Review of Systems Objective Vital Signs 07/09/23 1330 07/09/23 1347 BP: 127/88 118/80 Pulse: 89 Weight: 59.8 kg Height: 157.4 cm Body mass index is 24.14 kg/m . Physical Exam Constitutional: She appears well. She is active. No distress. HENT: Head: Atraumatic. Ears: Right Ear: Tympanic membrane and external ear normal. Left Ear: Tympanic membrane and external ear normal. Nose: Nose normal. Mouth/Throat: Mucous membranes are moist. Dentition is normal. No pharynx erythema. Oropharynx is clear. Eyes: EOM are normal. Pupils are equal, round, and reactive to light. Neck (more content not included)... Normal [facility] CNOVon 09-30-2017 CNOV Office Visit (UCWSTR) ABEBE DIAMOND Damir ([id number]) 3 FDate Time Provider Department09/30/17 5:00 PM HOMAR AMADOR (CARLOS ENRIQUE) [facility] During your visit today, we recorded the following information about you: Temperature Pulse Respiration Weight 98.9 degrees 88/minute 18/minute 56.4 kgHomar Amador APRN.CNP 09/30/2017 5:46 PM SignedSubjectiveHPIHPI Abebe Reich Lobo is a 12 year old female who presents today for CC of earpain, sinus congestion. This started 5 days ago. Has tried otc medication.Symptoms are worsened by nothing. Risk factors hx of allergic nasalcongestion..Patient presents with:Pain, Sinus: x 5 daysCough: Chronic due to AsthmaEar Pain: Today left ear pain and cloggedSore Throat: x 5 daysNo past medical history on file.No past surgical history on file.ALLERGIES Review of patient's allergies indicates no known allergies.MEDICATIONSmonte lukast chewable (SINGULAIR) 5 mg chewable tablet Take 5 mg by mouth dailyat bedtime.albuterol HFA (PROVENTIL HFA, VENTOLIN HFA) 90 mcg/actuation inhaler Inhale 2Puffs as instructed twice daily. And before gymLoratadine (CLARITIN REDITABS) 10 mg dissolvable tablet Take 10 mg by mouthonce daily.ISOtretinoin (ABSORICA) 25 mg cap Take 1 capsule by mouth twice daily.melatonin 3 mg Take by mouth daily at bedtime.cetirizine (ZYRTEC) 1 mg/mL syrup Take by mouth once daily.INULIN (FIBER GUMMIES ORAL) Take by mouth.No family history on file.Social HistorySubstance Use Topics- Smoking status: Never Smoker- Smokeless tobacco: Never Used- Alcohol use Not on fileReview of SystemsConstitutional: Positive for fever. Negative for chills and weight loss.HENT: Positive for congestion. Negative for ear pain, nosebleeds and sorethroat.Respiratory: Positive for cough (chronic, asthma, good now). Negative forshortness of breath and wheezing.Musculoskeletal: Negative for neck pain.Skin: Positive for rash (from acutain). Negative for itching.ObjectivePulse 88, temperature 37.2 ?C (98.9 ?F), temperature source Right Tympanic,resp. rate 18, weight 56.4 kg (124 lb 6.4 oz), SpO2 97 %.Physical ExamConstitutional: She is oriented to person, place, and time and well-developed,well-nouris hed, and in no distress. Non-toxic appearance. She does not have asickly appearance. No distress.HENT:Head: Normocephalic and atraumatic.Right Ear: Hearing, tympanic membrane, external ear and ear canal normal.Left Ear: Hearing, external ear and ear canal normal. Tympanic membrane iserythematous and bulging. Tympanic membrane is not perforated.Nose: Nose normal.Mouth/Throat: Uvula is midline, oropharynx is clear and moist and mucousmembranes are normal.Eyes: Conjunctivae and lids are normal. Pupils are equal, round, and reactiveto light. Right eye exhibits no discharge. Left eye exhibits no discharge. Noscleral icterus.Neck: Trachea normal and normal range of motion. Neck supple.Cardiovascular: Normal rate, regular rhythm and normal heart sounds.Pulmonary/Chest: Effort normal and breath sounds normal.Lymphadenopathy: She has no cervical adenopathy.Neurological: She is alert and oriented to person, place, and time.Skin: No rash noted. She is not diaphoretic. ASSESSMENT/PLAN:1. Acute otitis media, left - ICD9: 382.9, ICD10: H66.92- Will begin treatment with Amoxicillin for 10 days- Supportive care with plenty of fluids, rest, and analgesia prn.- Follow up in 3-5 days if symptoms persist or worsen.- AMOXICILLIN 875 MG TABLETPrescription instructions reviewed with patient as applicable. Parent advisedif symptoms do not improve or if symptoms worsen sooner, to contact the officefor further evaluation by their primary care physician. Potential red flagsymptoms discussed with the patient. Reviewed appropriate action plan to takeif red flag symptoms occur. Parent agreeable to treatment plan.Homar Amador APRN.Yao Amador APRN.CNP 09/30/2017 5:38 PM SignedOTITIS MEDIAGENERAL INFORMATION:Otitis media is an infection of the middle ear. The middle ear sits behind theeardrum. This infection may be caused by a virus or bacteria and often followsa cold. Children often have repeat ear infections. Otitis media is notcontagious.INSTRUCTIONS :1. An antibiotic has been prescribed. It should be taken exactly asprescribed. Do not stop the medicine even if the symptoms go away.2. Mnji-kvx-yqgnuoo pain medication may be taken or other pain medication asprescribed by the doctor.3. Nothing should be placed in the ear unless instructed by your doctor.4. The patient may return to school/daycare or work when the temperature isnormal (98.6 F or 37 C).5. The patient should not swim while the ear is infected.CONTACT YOUR DOCTOR IF YOU OR YOUR CHILD:1. Does not feel better within 36 hours.2. Develops a temperature over 102E F (39E C).3. Starts vomiting or has diarrhea.4. Develops drainage from the affected ear.5. Has any new problem that may be related to the medicine prescribed.RETURN TO THE ED IF:1. You or your child has a severe headache or pain around the ear.2. You or your child notice swelling around the ear.3. You or your child has a seizure (convulsion), twitching of the facialmuscles, or passes out.4. You or your child is dizzy, has a stiff neck, or cannot walk or talknormally.5. Your child becomes more irritable or listless (not interested in his or hersurroundings, does not get soothed by you holding him or her).Referring Provider: SELF [[id number]]Allergies As of Date: 09/30/2017(No Known Allergies)Date Reviewed: 09/30/2017Reviewed by: Homar Smith) [facility] for Visit: Pain, Sinus [857] Cmt: x 5 days Cough [28] Cmt: Chronic due to Asthma Ear Pain [817] Cmt: Today left ear pain and clogged Sore Throat [200] Cmt: x 5 daysPrimary Visit Diagnosis:Acute otitis media, left [H66.92]Order(s):amoxicill in (AMOXIL) 875 mg tabletTake 1 tablet by mouth twice daily for 10 days.Disp: 20 tabletRfl: 0Prescriptions as of 09/30/2017 Sig: MONTELUKAST 5 MG CHEWABLE TAB* Take 5 mg by mouth daily at b* ALBUTEROL SULFATE HFA 90 MCG/* Inhale 2 Puffs as instructed * LORATADINE 10 MG DISINTEGRATI* Take 10 mg by mouth once elizabeth* ISOTRETINOIN 25 MG CAPSULE Take 1 capsule by mouth twice* AMOXICILLIN 875 MG TABLET Take 1 tablet by mouth twice * MELATONIN 3 MG TABLET Take by mouth daily at bedti* CETIRIZINE 1 MG/ML ORAL SOLUT* Take by mouth once daily. FIBER GUMMIES ORAL Take by mouth.Medication notes this encounter ALBUTEROL SULFATE HFA 90 MCG/ACTUATION AEROSOL INHALER >> Mirna Dueñas MOTOR POOL DRIVER 09/30/2017 5:08 PM >> MIRNA DUEÑAS E MOTOR POOL DRIVER SatSep 30, 2017 5:08 PM [facility] Received Sig: Inhale 2 Puffsinto the lungs every 4 hours as needed for Wheezing or Cough Use with spacer. CETIRIZINE 1 MG/ML ORAL SOLUTION >> Mirna Brandi PoseyLeana MOTOR POOL DRIVER 09/30/2017 5:09 PM >> LEANA, MIRNA E MOTOR POOL DRIVER SatSep 30, 2017 5:09 PM Not using FIBER GUMMIES ORAL >> Mirna Brandi ClintonLeana MOTOR POOL DRIVER 09/30/2017 5:09 PM >> MIRNA DUEÑAS E MOTOR POOL DRIVER SatSep 30, 2017 5:09 PM PRNProblem List As Of Date: 09/30/2017(None) Other instructions from your clinician: OTITIS MEDIA GENERAL INFORMATION: Otitis media is an infection of the middle ear. The middle ear sits behind the eardrum. This infection may be caused by a virus or bacteria and often follows a cold. Children often have repeat ear infections. Otitis media is not contagious. INSTRUCTIONS: 1. An antibiotic has been prescribed. It should be taken exactly as prescribed. Do not stop the medicine even if the symptoms go away. 2. Lnwq-cni-nkqjibt pain medication may be taken or other pain medication as prescribed by the doctor. 3. Nothing should be placed in the ear unless instructed by your doctor. 4. The patient may return to school/daycare or work when the temperature is normal (98.6 F or 37 C). 5. The patient should not swim while the ear is infected. CONTACT YOUR DOCTOR IF YOU OR YOUR CHILD: 1. Does not feel better within 36 hours. 2. Develops a temperature over 102E F (39E C). 3. Starts vomiting or has diarrhea. 4. Develops drainage from the affected ear. 5. Has any new problem that may be related to the medicine prescribed. RETURN TO THE ED IF: 1. You or your child has a severe headache or pain around the ear. 2. You or your child notice swelling around the ear. 3. You or your child has a seizure (convulsion), twitching of the facial muscles, or passes out. 4. You or your child is dizzy, has a stiff neck, or cannot walk or talk normally. 5. Your child becomes more irritable or listless (not interested in his or her surroundings, does not get soothed by you holding him or her).Prescriptions ordered this encounter Disp Refills Start End AMOXICILLIN 875 MG TABLET 20 t* 0 09/30/2017 10/10/2017 Route: ORAL Sig: Take 1 tablet by mouth twice daily for 10 days. Status:Closed by HOMAR AMADOR CNP on 09/30/17 Normal [facility] PROGRESSon 09-30-2017 PROGRESS HNO ID: [id number] thor: Homar (Carlos Enrique) Connie: (none)Author Type: Nurse PractitionerType: Progress NotesFiled: 09/30/2017 5:46 PMNote Text:SubjectiveHPIHPI Abebe Diamond is a 12 year old female who presents today for CC ofear pain, sinus congestion. This started 5 days ago. Has tried otcmedication. Symptoms are worsened by nothing. Risk factors hx ofallergic nasal congestion..Patient presents with:Pain, Sinus: x 5 daysCough: Chronic due to AsthmaEar Pain: Today left ear pain and cloggedSore Throat: x 5 daysNo past medical history on file.No past surgical history on file.ALLERGIES Review of patient's allergies indicates no known allergies.MEDICATIONSmonte lukast chewable (SINGULAIR) 5 mg chewable tablet Take 5 mg by mouthdaily at bedtime.albuterol HFA (PROVENTIL HFA, VENTOLIN HFA) 90 mcg/actuation inhalerInhale 2 Puffs as instructed twice daily. And before gymLoratadine (CLARITIN REDITABS) 10 mg dissolvable tablet Take 10 mg bymouth once daily.ISOtretinoin (ABSORICA) 25 mg cap Take 1 capsule by mouth twice daily.melatonin 3 mg Take by mouth daily at bedtime.cetirizine (ZYRTEC) 1 mg/mL syrup Take by mouth once daily.INULIN (FIBER GUMMIES ORAL) Take by mouth.No family history on file.Social HistorySubstance Use Topics- Smoking status: Never Smoker- Smokeless tobacco: Never Used- Alcohol use Not on fileReview of SystemsConstitutional: Positive for fever. Negative for chills and weight loss.HENT: Positive for congestion. Negative for ear pain, nosebleeds and sorethroat.Respiratory: Positive for cough (chronic, asthma, good now). Negative forshortness of breath and wheezing.Musculoskeletal: Negative for neck pain.Skin: Positive for rash (from acutain). Negative for itching.ObjectivePulse 88, temperature 37.2 ?C (98.9 ?F), temperature source RightTympanic, resp. rate 18, weight 56.4 kg (124 lb 6.4 oz), SpO2 97 %.Physical ExamConstitutional: She is oriented to person, place, and time andwell-developed, well-nourished, and in no distress. Non-toxic appearance.She does not have a sickly appearance. No distress.HENT:Head: Normocephalic and atraumatic.Right Ear: Hearing, tympanic membrane, external ear and ear canal normal.Left Ear: Hearing, external ear and ear canal normal. Tympanic membrane iserythematous and bulging. Tympanic membrane is not perforated.Nose: Nose normal.Mouth/Throat: Uvula is midline, oropharynx is clear and moist and mucousmembranes are normal.Eyes: Conjunctivae and lids are normal. Pupils are equal, round, andreactive to light. Right eye exhibits no discharge. Left eye exhibits nodischarge. No scleral icterus.Neck: Trachea normal and normal range of motion. Neck supple.Cardiovascular: Normal rate, regular rhythm and normal heart sounds.Pulmonary/Chest: Effort normal and breath sounds normal.Lymphadenopathy: She has no cervical adenopathy.Neurological: She is alert and oriented to person, place, and time.Skin: No rash noted. She is not diaphoretic. ASSESSMENT/PLAN:1. Acute otitis media, left - ICD9: 382.9, ICD10: H66.92- Will begin treatment with Amoxicillin for 10 days- Supportive care with plenty of fluids, rest, and analgesia prn.- Follow up in 3-5 days if symptoms persist or worsen.- AMOXICILLIN 875 MG TABLETPrescription instructions reviewed with patient as applicable. Parentadvised if symptoms do not improve or if symptoms worsen sooner, tocontact the office for further evaluation by their primary care physician. Potential red flag symptoms discussed with the patient. Reviewedappropriate action plan to take if red flag symptoms occur. Parentagreeable to treatment plan.Homar Amador APRN.CODING AUDITOR Normal [facility] Vital Signs Date Time Vital Sign Value Performing Clinician Homero cerna 01-26-2025 07:27-0400 Body temperature 98.91 [degF] Xu Luque MD Work Phone: [facility] [employer] 01-26-2025 07:27-0400 Diastolic blood pressure 87 mm[Hg] Xu Luque MD Work Phone: [facility] [employer] 01-26-2025 07:27-0400 Heart rate 67 /min Xu Luque MD Work Phone: [facility] 01-26-2025 07:27-0400 Systolic blood pressure 134 mm[Hg] Xu Luque MD Work Phone: [facility] [employer] 07-28-2024 07:59-0500 Body height 157.5 cm Xu Luque MD Work Phone: [facility] 07-28-2024 07:59-0500 Body mass index (BMI) [Ratio] 28.35 kg/m2 Xu Luque MD Work Phone: [facility] 07-28-2024 07:59-0500 Body weight 70.31 kg Xu Luque MD Work Phone: [facility] 07-28-2024 07:59-0500 Diastolic blood pressure 88 mm[Hg] Xu Luque MD Work Phone: [facility] 07-28-2024 07:59-0500 Heart rate 84 /min Xu Luque MD Work Phone: [facility] 07-28-2024 07:59-0500 Systolic blood pressure 125 mm[Hg] Xu Luque MD Work Phone: [facility] 03-16-2024 10:44-0400 Body height 157.5 cm Micky Weygandt GREENHOUSE SUPERINTENDENT Work Phone: [facility] 03-16-2024 10:44-0400 Body mass index (BMI) [Ratio] 26.61 kg/m2 Micky Weygandt GREENHOUSE SUPERINTENDENT Work Phone: [facility] 03-16-2024 10:44-0400 Body weight 66 kg Micky Weygandt GREENHOUSE SUPERINTENDENT Work Phone: [facility] 03-16-2024 10:44-0400 Diastolic blood pressure 68 mm[Hg] Micky Weygandt GREENHOUSE SUPERINTENDENT Work Phone: [facility] 03-16-2024 10:44-0400 Heart rate 74 /min Micky Weygandt GREENHOUSE SUPERINTENDENT Work Phone: [facility] 03-16-2024 10:44-0400 Systolic blood pressure 110 mm[Hg] Micky Weygandt GREENHOUSE SUPERINTENDENT Work Phone: [facility] Healthcare Encounters Encounter Date Encounter Type Care Provider Facility Start: 04-29-2025 ambulatory Esha Valentin lity:[facility] Start: 04-19-2025 Encounter for gynecological examination (general) (routine) with abnormal findings Esha Harttiffanie [facility] Start: 04-19-2025 End: 04-19-2025 ambulatory Psychiatric Facility:[facility] Start: 04-19-2025 End: 04-19-2025 ambulatory Psychiatric Facility:[facility] Start: 01-26-2025 End: 01-26-2025 Office outpatient visit 15 minutes [facility] Comment on above: Migraine without aur a and without status migrainosus, not intractable (Primary Dx) Start: 01-26-2025 End: 01-26-2025 ambulatory [facility] Start: 08-11-2024 End: 08-11-2024 Refill Dragan Turner PharmD [facility] Start: 08-06-2024 End: 10-06-2024 Telephone encounter Xu Luque MD [facility] Comment on above: Prior Authorization (Nurtec 75 MG tablet dispersible) Start: 07-28-2024 End: 07-28-2024 Office outpatient new 30 minutes Xu Luque MD Work Phone: [facility] [facility] Comment on above: Migraine without aur a and without status migrainosus, not intractable (Primary Dx) Start: 07-28-2024 End: 07-28-2024 ambulatory [facility] Start: 06-26-2024 End: 06-26-2024 ambulatory SELF REFERRED [facility] Start: 06-26-2024 End: 06-26-2024 ambulatory Psychiatric Facility:[facility] Start: 05-15-2024 End: 05-15-2024 ambulatory Psychiatric Facility:[facility] Start: 05-08-2024 End: 05-08-2024 ambulatory MICKY ANDERSEN Not Available Start: 05-08-2024 End: 05-08-2024 Office outpatient visit 15 minutes Micky Andersen GREENHOUSE SUPERINTENDENT Work Phone: [facility] Comment on above: Migraine without aur a and without status migrainosus, not intractable (CMS/HCC) (Primary Dx) Start: 03-16-2024 End: 03-16-2024 Bamboo flowsheet Micky Andersen GREENHOUSE SUPERINTENDENT Work Phone: [facility] Start: 03-16-2024 End: 03-16-2024 Bamboo flowsheet Micky Andersen GREENHOUSE SUPERINTENDENT Work Phone: [facility] Start: 03-16-2024 End: 03-16-2024 ambulatory MICKY ANDERSEN Not Available Start: 03-16-2024 End: 03-16-2024 Office outpatient visit 15 minutes Micky Andersen GREENHOUSE SUPERINTENDENT Work Phone: [facility] Comment on above: Migraine without aur a and without status migrainosus, not intractable (CMS/HCC) (Primary Dx) Start: 07-09-2023 End: 07-09-2023 ambulatory [facility] Start: 06-10-2023 End: 06-10-2023 ambulatory VIOLET SOLIS Not Available Start: 05-15-2023 End: 05-15-2023 ambulatory VIOLET SOLIS Not Available Start: 05-06-2023 End: 05-06-2023 ambulatory [facility] Work Phone: Start: 05-06-2023 End: 05-06-2023 Patient encounter procedure [facility] Work Phone: Start: 09-30-2017 End: 10-01-2017 Ambulatory [facility] Procedures Date Procedure Procedure Detail Performing Clinician Start: 01-26-2025 Follow-up visit Follow-up XU SILVA Start: 05-06-2023 MRI of brain without contrast Plan of Treatment Date Care Activity Detail Author Start: 02-07-2079 RSV Immunization for Adults (1 - 1-dose 75+ series) RSV Immunization for Adults (1 - 1-dose 75+ series) [facility] Start: 02-07-2054 Zoster Vaccines (1 of 2) Zoster Vaccines (1 of 2) [facility] Start: 01-25-2026 End: 01-25-2026 Patient encounter procedure 01/25/2026 7:30 AM EDT Office Visit [address] [place] [address] [place] [id number] Xu Luque MD [address] [place] [id number] [facility] Start: 03-07-2025 DTaP/Tdap/Td Vaccines (7 - Td or Tdap) DTaP/Tdap/Td Vaccines (7 - Td or Tdap) [facility] Start: 02-22-2025 Influenza vaccination [facility] Start: 01-26-2025 End: 01-26-2025 Patient encounter procedure 01/26/2025 7:30 AM EDT Office Visit [address] [place] [address] [place] [address] Xu Luque MD [address] [place] [id number] [facility] Start: 02-23-2024 COVID-19 Vaccine ( season) COVID-19 Vaccine ( season) [facility] Start: 02-23-2024 Influenza vaccination Influenza Vaccine (#1) [facility] Start: 02-07-2023 Pneumococcal Vaccine: Pediatrics (0 to 5 Years) and At-Risk Patients (6 to 49 Years) (1 of 2 - PCV) Pneumococcal Vaccine: Pediatrics (0 to 5 Years) and At-Risk Patients (6 to 49 Years) (1 of 2 - PCV) [facility] Start: 02-07-2022 Hepatitis C screening Hepatitis C Screening [facility] Start: 2016 Depression Screening Depression Screening [facility] Start: 2004 HIV screening HIV Screening [facility] Immunizations Immunization Date Immunization Notes Care Provider Fa cility 03-03-2014 influenza virus vacc ine, unspecified formulation Xu Luque MD Work Phone: [facility] Payers Date Payer Category Payer Self-pay [id number] 2023 Commercial Managed C are - HMO [employer] RAJ [id number] 2022 Private Health Insurance SEAN Jose Daniel [id number] 2022 Unknown RAJ ESTRADA [place] [id number] 2022-Present [phone] [address] [place] [id number] 2022 Unknown [id number] 2016 Unknown [facility] DO NOT USE 22 [id number] 2004 Unknown [id number] 1259 2004 Unknown [id number] 1259 2004 Unknown [id number] 1259 2004 Unknown [id number]. 1259 2004 Unknown [id number] 479 2004 Unknown [id number]. 479 Unknown [id number]. 462 Unknown [id number]. 462 Unknown [id number] 462 Unknown [id number] 462 Unknown [id number] 462 Social History Date Type Detail Facility Start: 01-01-2022 Tobacco smoking stat [facility] Unknown if ever smoked [facility] Start: 2005 Sex Assigned At Female W [facility] Start: 04-01-2023 End: 07-28-2024 Tobacco smoking status [facility] Never smoked tobacco [facility] Start: 04-01-2023 End: 07-28-2024 Tobacco use and exposure Smokeless tobacco non-user [facility] Start: 06-10-2023 Alcoholic beverage intake Lifetime non-drinker (finding) [facility] Start: 06-10-2023 End: 01-26-2025 History of Social function [facility] Start: 06-10-2023 End: 01-26-2025 Tobacco use panel [facility] Start: 2004 Sex assigned at Not on file [facility] Start: 07-27-2024 Sex Female (finding) [facility] Clinical Notes 03-16-2024 to 01-26-2025 Xu Luque MD - 01/26/2025 7:30 AM EDTTelephone Encounter - Leonor Isidro APRN - CARLOS ENRIQUE - 08/11/2024 1:15 PM ESTTelephone Encounter - Leonor Isidro APRN - CARLOS ENRIQUE - 08/11/2024 1:15 PM EST Note Date & Type Note Facility 01-26-2025 History of Presen t illness Narrative Department of Neurological Sciences Visit Note CHIEF COMPLAINT: Chief Complaint Patient presents with Follow-up Migraine Main diagnoses: Migraine without aura, not intractable HISTORY OF PRESENT ILLNESS: The patient is a 19 y.o. female today presents to the Neurology clinic with history of migraine without aura, not intractable. Today patient presented to the neurology clinic for a follow-up visit. Patient reports that she has been doing very well. Patient did have approximately 2-3 migraines a month and she did take Nurtec with 100% efficacy. She denied any side effect from medication. Patient tried to follow a low tyramine diet. Evidently patient tried to avoid caffeine. Patient denied any other neurological symptoms. Secundary diagnoses: Asthma Medications: Current Medications[1] Allergies: Pollen extract, Cat dander, Dog epithelium (canis lupus familiaris), and Grass pollen(k-o-r-t-swt charmaine) Social History: Social History Socioeconomic History Marital status: Single Spouse name: Not on file Number of children: Not on file Years of education: Not on file Highest education level: Not on file Occupational History Not on file Tobacco Use Smoking status: Never Smokeless tobacco: Never Substance and Sexual Activity Alcohol use: Not on file Drug use: Not on file Sexual activity: Not on file Other Topics Concern Not on file Social History Narrative Not on file Social Drivers of Health Financial Resource Strain: Not on file Food Insecurity: Not on file Transportation Needs: Not on file Physical Activity: Not on file Stress: Not on file Social Connections: Not on file Intimate Partner Violence: Not on file Housing Stability: Not on file Family History: Family History[2] REVIEW OF SYSTEMS: Review of Systems Constitutional: Positive for fatigue. HENT: Negative. Phonophobia Eyes: Positive for photophobia and visual disturbance. Respiratory: Negative. Cardiovascular: Negative. Gastrointestinal: Positive for nausea. Endocrine: Negative. Genitourinary: Negative. Musculoskeletal: Positive for neck pain and neck stiffness. Skin: Negative. Allergic/Immunologic: Negative. Neurological: Positive for dizziness, light-headedness and headaches. Hematological: Negative. Psychiatric/Behavioral: The patient is nervous/anxious. PHYSICAL EXAM: Vitals: BP 134/87 Pulse 67 Temp 37.2 C (98.9 F) (Infrared) Physical Exam Constitutional: Appearance: Normal appearance. HENT: Head: Normocephalic and atraumatic. Nose: Nose normal. Mouth/Throat: Mouth: Mucous membranes are moist. Pharynx: Oropharynx is clear. Eyes: General: Vision grossly intact. Gaze aligned appropriately. Extraocular Movements: Extraocular movements intact. Conjunctiva/sclera: Conjunctivae normal. Pupils: Pupils are equal, round, and reactive to light. Neck: Trachea: Trachea and phonation normal. Cardiovascular: Rate and Rhythm: Normal rate and regular rhythm. Pulses: Normal pulses. Heart sounds: Normal heart sounds. Pulmonary: Effort: Pulmonary effort is normal. Breath sounds: Normal breath sounds. Abdominal: General: Abdomen is flat. Bowel sounds are normal. Palpations: Abdomen is soft. Musculoskeletal: General: Normal range of motion. Cervical back: Normal range of motion and neck supple. Skin: General: Skin is warm and dry. Neurological: General: No focal deficit present. Mental Status: She is alert and oriented to person, place, and time. Mental status is at baseline. Cranial Nerves: Cranial nerves 2-12 are intact. Deep Tendon Reflexes: Reflexes are normal and symmetric. Reflex Scores: Tricep reflexes are 2+ on the right side and 2+ on the left side. Bicep reflexes are 2+ on the right side and 2+ on the left side. Brachioradialis reflexes are 2+ on the right side and 2+ on the left side. Patellar reflexes are 2+ on the right side and 2+ on the left side. Achilles reflexes are 2+ on the right side and 2+ on the left side. Psychiatric: Attention and Perception: Attention normal. Mood and Affect: Mood normal. Speech: Speech normal. Behavior: Behavior normal. Behavior is cooperative. Thought Content: Thought content normal. Cognition and Memory: Cognition normal. Judgment: Judgment normal. Impression: Diagnosis Plan 1. Migraine without aura and without status migrainosus, not intractable Plan: 1. Patient appears to be doing well we are going to maintain patient on Nurtec at the same doses. 2. New prescription was sent to [facility] retail pharmacy. 3. Patient will continue a low tyramine diet. 4. Patient will return to the neurology clinic in 1 year for further evaluation Xu Luque MD [1] Current Outpatient Medications Medication Sig Dispense Refill levonorgestrel-ethinyl estradiol (Seasonale) 0.15-0.03 MG tablet Take 1 tablet by mouth daily. loratadine (Claritin Reditabs) 10 MG disintegrating tablet Take 10 mg by mouth daily. montelukast (Singulair) 10 MG tablet Take 10 mg by mouth Nightly. naproxen (Naprosyn) 500 MG tablet Take 500 mg by mouth 2 times daily (with meals). Nurtec 75 MG tablet dispersible Take 1 tablet (75 mg) by mouth Once as needed (migraine). 8 tablet 11 Qvar RediHaler 80 MCG/ACT inhaler Inhale 80 mcg 2 times daily. Rhofade 1 % cream Apply 1 Application topically daily. Rimegepant Sulfate (Nurtec) 75 MG tablet dispersible Dissolve 1 tablet (75 mg) by mouth once daily at onset of symptoms as needed for migraine treatment. Max dose: 75 mg in 24 hours. 24 tablet 3 No current facility-administered medications for this visit. [2] No family history on file. documented in this encounter [facility] 08-11-2024 Telephone encounter Note Requested Prescriptions Signed Prescriptions Disp Refills Rimegepant Sulfate (Nurtec) 75 MG tablet dispersible 24 tablet 3 Sig: Dissolve 1 tablet (75 mg) by mouth once daily at onset of symptoms as needed for migraine treatment. Max dose: 75 mg in 24 hours. Authorizing Provider: LEONOR ISIDRO [facility] 08-11-2024 Miscellaneous Notes Requested Prescriptions Signed Prescriptions Disp Refills Rimegepant Sulfate (Nurtec) 75 MG tablet dispersible 24 tablet 3 Sig: Dissolve 1 tablet (75 mg) by mouth once daily at onset of symptoms as needed for migraine treatment. Max dose: 75 mg in 24 hours. Authorizing Provider: LEONOR ISIDRO documented in this encounter [facility] 08-07-2024 Telephone encounter Note [facility] working on [place] [facility] 08-07-2024 Miscellaneous Notes [facility] working on [place] Name of caller: Shannon Contact phone number: [phone] Relationship to Patient: family member mother Provider: Dr Luque Practice: Neurology Chief Complaint/Reason for Call: Prior authorization is required for Nurtec 75 MG tablet dispersible Please send prior authorization or contact pt or Shannon to discuss. Best time of day caller can be reached: Any Patient advised that office/PCP has 24-48 business hours to return their call: Yes documented in this encounter [facility] 08-06-2024 Telephone encounter Note Name of caller: Shannon Contact phone number: [phone] Relationship to Patient: family member mother Provider: Dr Luque Practice: Neurology Chief Complaint/Reason for Call: Prior authorization is required for Nurtec 75 MG tablet dispersible Please send prior authorization or contact pt or Shannon to discuss. Best time of day caller can be reached: Any Patient advised that office/PCP has 24-48 business hours to return their call: Yes [facility] 07-28-2024 History of Presen t illness Narrative Department of Neurological Sciences Initial Consult Note CHIEF COMPLAINT: Chief Complaint Patient presents with New Patient Migraines Reason for Consult: Migraine without aura, no intractable HISTORY OF PRESENT ILLNESS: The patient is a 19 y.o. female who presents with history of migraine without aura, intractable. Today patient presented to the neurology clinic for evaluation and treatment of her migraine headaches. Patient reports that currently she is doing very well. She only had 1 or 2 migraines a month. Medication MarchApril 2024 patient have very frequent migraine headaches. 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 Patient denies change jobs and moved to a new hair salon and patient is significantly more relaxed. Since then patient headaches are improved significantly. In the past patient have an MRI of the brain which were reported to be normal. Patient is taking Nurtec for the acute episode of headaches and she reported that works at least 80% of the time. She denied any side effect from medication. Patient headaches are usually bilateral throbbing, associated with photophobia phonophobia and nausea. At time patient is unable to work during the headache. Patient have had positive family history of migraine headaches. Her mother has also migraines. Patient denied any auras. Patient denied any other medical problems. Patient reported that she is trying to avoid food that can cause headaches.. Past Medical History: No past medical history on file. Past Surgical History: No past surgical history on file. Medications: Current Outpatient Medications Medication Sig Dispense Refill levonorgestrel-ethinyl estradiol (Seasonale) 0.15-0.03 MG tablet Take 1 tablet by mouth daily. loratadine (Claritin Reditabs) 10 MG disintegrating tablet Take 10 mg by mouth daily. montelukast (Singulair) 10 MG tablet Take 10 mg by mouth Nightly. naproxen (Naprosyn) 500 MG tablet Take 500 mg by mouth 2 times daily (with meals). Qvar RediHaler 80 MCG/ACT inhaler Inhale 80 mcg 2 times daily. Rhofade 1 % cream Apply 1 Application topically daily. Nurtec 75 MG tablet dispersible Take 1 tablet (75 mg) by mouth Once as needed (migraine). 8 tablet 11 No current facility-administered medications for this visit. Allergies: Pollen extract, Cat dander, Dog epithelium (canis lupus familiaris), and Grass pollen(k-o-r-t-swt charmaine) Social History: Social History Socioeconomic History Marital status: Single Spouse name: Not on file Number of children: Not on file Years of education: Not on file Highest education level: Not on file Occupational History Not on file Tobacco Use Smoking status: Never Smokeless tobacco: Never Substance and Sexual Activity Alcohol use: Not on file Drug use: Not on file Sexual activity: Not on file Other Topics Concern Not on file Social History Narrative Not on file Social Drivers of Health Financial Resource Strain: Not on file Food Insecurity: Not on file Transportation Needs: Not on file Physical Activity: Not on file Stress: Not on file Social Connections: Not on file Intimate Partner Violence: Not on file Housing Stability: Not on file Family History: No family history on file. REVIEW OF SYSTEMS: Review of Systems Constitutional: Positive for fatigue. HENT: Negative. Phonophobia Eyes: Positive for photophobia and visual disturbance. Respiratory: Negative. Cardiovascular: Negative. Gastrointestinal: Positive for nausea. Endocrine: Negative. Genitourinary: Negative. Musculoskeletal: Positive for neck pain and neck stiffness. Skin: Negative. Allergic/Immunologic: Negative. Neurological: Positive for dizziness, light-headedness and headaches. Hematological: Negative. Psychiatric/Behavioral: The patient is nervous/anxious. PHYSICAL EXAM: Vitals: BP 125/88 Pulse 84 Ht 5' 2 (1.575 m) Wt 155 lb (70.3 kg) BMI 28.35 kg/m Physical Exam Constitutional: Appearance: Normal appearance. HENT: Head: Normocephalic and atraumatic. Nose: Nose normal. Mouth/Throat: Mouth: Mucous membranes are moist. Pharynx: Oropharynx is clear. Eyes: General: Vision grossly intact. Gaze aligned appropriately. Extraocular Movements: Extraocular movements intact. Conjunctiva/sclera: Conjunctivae normal. Pupils: Pupils are equal, round, and reactive to light. Neck: Trachea: Trachea and phonation normal. Cardiovascular: Rate and Rhythm: Normal rate and regular rhythm. Pulses: Normal pulses. Heart sounds: Normal heart sounds. Pulmonary: Effort: Pulmonary effort is normal. Breath sounds: Normal breath sounds. Abdominal: General: Abdomen is flat. Bowel sounds are normal. Palpations: Abdomen is soft. Musculoskeletal: General: Normal range of motion. Cervical back: Normal range of motion and neck supple. Skin: General: Skin is warm and dry. Neurological: General: No focal deficit present. Mental Status: She is alert and oriented to person, place, and time. Mental status is at baseline. Cranial Nerves: Cranial nerves 2-12 are intact. Deep Tendon Reflexes: Reflexes are normal and symmetric. Reflex Scores: Tricep reflexes are 2+ on the right side and 2+ on the left side. Bicep reflexes are 2+ on the right side and 2+ on the left side. Brachioradialis reflexes are 2+ on the right side and 2+ on the left side. Patellar reflexes are 2+ on the right side and 2+ on the left side. Achilles reflexes are 2+ on the right side and 2+ on the left side. Psychiatric: Attention and Perception: Attention normal. Mood and Affect: Mood normal. Speech: Speech normal. Behavior: Behavior normal. Behavior is cooperative. Thought Content: Thought content normal. Cognition and Memory: Cognition normal. Judgment: Judgment normal. Impression: Diagnosis Plan 1. Migraine without aura and without status migrainosus, not intractable Nurtec 75 MG tablet dispersible Plan: 1. Since patient appeared to be doing well and currently her headaches are well-controlled we are going to maintain patient on Nurtec 75 mg 1 tablet at the onset of headache as needed. 2. Patient was introduced to low tyramine diet. 3. Patient will return to the neurology clinic in 6 months for further evaluation thank you Xu Luque MD documented in this encounter [facility] 05-08-2024 History of Presen t illness Narrative Images from the original note were not included. CHIEF COMPLAINT: migraines HISTORY OF PRESENT ILLNESS: 19 year old female to follow up on migraines via telemedicine visit, verbal consent obtained. Nurtec remains effective as needed for migraines. In the past month may taken at least 3-4 times d/t weather can be contributing factor. Tolerates nurtec well. Denies further questions or concerns. Last visit 03/16/24 MW: 19 year old female presented to office to follow up on migraines. May get moderate migraines at least 2x/month, duration > 6 hours, associated sxs: nausea. Past tx: imitrex, maxalt. Tried samples of nurtec from last visit, effective. All questions and concerns addressed. Current Outpatient Medications on File Prior to Visit Medication Sig Dispense Refill albuterol HFA 90 mcg/act inhaler fluticasone (Flovent) 220 MCG/ACT inhaler Inhale 2 puffs in the morning and 2 puffs in the evening. loratadine (Claritin Reditabs) 10 MG disintegrating tablet Take 10 mg by mouth in the morning. magnesium oxide (Mag-Ox) 400 mg tablet Take 400 mg by mouth at bedtime. montelukast (Singulair) 10 MG tablet Take 10 mg by mouth in the morning. naproxen (Naprosyn) 500 MG tablet Take 500 mg by mouth if needed. Aparna 3-0.02 MG tablet Daily as needed ondansetron ODT (Zofran-ODT) 4 MG disintegrating tablet Take 8 mg by mouth Daily as needed riboflavin (vitamin B2) 100 mg tablet tablet Take 400 mg by mouth in the morning. rizatriptan (Maxalt) 10 MG tablet Take 1 tablet (10 mg) by mouth 1 (one) time if needed for migraine (may repeat x1) May repeat in 2 hours if unresolved. Do not exceed 30 mg in 24 hours. 9 tablet 2 [DISCONTINUED] SUMAtriptan (Imitrex) 100 MG tablet Take 1 tablet (100 mg) by mouth 1 (one) time if needed for migraine (may repeat x1) for up to 27 doses. (Patient not taking: Reported on 06/10/2023) 9 tablet 2 No current facility-administered medications on file prior to visit. Past Medical History: Diagnosis Date Back pain Migraine (CMS/HCC) Past Surgical History: Procedure Laterality Date TONSILLECTOMY WISDOM TOOTH EXTRACTION Family History Problem Relation Name Age of Onset Migraines Mother Social History Tobacco Use Smoking status: Never Smokeless tobacco: Never Substance Use Topics Alcohol use: Never ALLERGIES: Other REVIEW OF SYSTEMS: General: Appetite change: denies. Chills: denies. Fever: denies. Allergy/Immunology: Unusual rection to medications, food, animals or insects reaction: denies. Ophthalmologic: Visual acuity change: denies. ENT: Decreased hearing: denies. Endocrine: Weight loss: denies. Respiratory: Cough: denies. Wheezing: denies. Cardiovascular: Chest pain: denies. Palpitations: denies. Gastrointestinal: Abdominal pain: denies. Difficulty swallowing: denies Hematology: Bleeding problems: denies. Genitourinary: Painful urination: denies. Musculoskeletal: Joint pain: denies. Joint edema: denies. Skin: Rash: denies. Neurologic: Ataxia: denies, Tremor: denies. Psychiatric Anxiety: denies. Depression: denies. Insomnia: denies. Suicidal thoughts: denies. Also see HPI for elements of ROS documented therein and for details of positive findings, which shall supersede the foregoing. OBJECTIVE: Objective There were no vitals filed for this visit. There is no height or weight on file to calculate BMI. Examination: General Exam: pleasant, well nourished, well developed, in no acute distress Eyes: extraocular movement intact (EOMI) upper eyelids normal , lower eyelids normal Neurologic: nonfocal, alert and oriented, cognitive exam grossly normal, cranial nerves 2-12 grossly intact - Exam limited d/t telemedicine Psych: pleasant, cooperative, good eye contact , speech clear , judgement and insight good ASSESSMENT/PLAN: 1. Migraine without aura and without status migrainosus, not intractable (CMS/HCC) Continue nurtec prn, denied need for abortive tx Past tx: kobyxmikelalt 05/06/23 MRI of brain: normal Pt has been fully educated on their diagnosis, treatment options, follow up plan, and return instructions. documented in this encounter [facility] 05-08-2024 Miscellaneous Notes Addended by: MICKY ANDERSEN on: 05/08/2024 09:58 AM Modules accepted: Orders documented in this encounter [facility] 05-08-2024 Note Addended by: MICKY SALAS on: 05/08/2024 09:58 AM Modules accepted: Orders [facility] 05-08-2024 Note Addended by: MICKY SALAS on: 05/08/2024 09:58 AM Modules accepted: Orders [facility] 03-16-2024 History of Presen t illness Narrative Images from the original note were not included. CHIEF COMPLAINT: migraines HISTORY OF PRESENT ILLNESS: 19 year old female presented to office to follow up on migraines. May get moderate migraines at least 2x/month, duration > 6 hours, associated sxs: nausea. Past tx: imitrex, maxalt. Tried samples of nurtec from last visit, effective. All questions and concerns addressed. Current Outpatient Medications on File Prior to Visit Medication Sig Dispense Refill albuterol HFA 90 mcg/act inhaler fluticasone (Flovent) 220 MCG/ACT inhaler Inhale 2 puffs in the morning and 2 puffs in the evening. loratadine (Claritin Reditabs) 10 MG disintegrating tablet Take 10 mg by mouth in the morning. magnesium oxide (Mag-Ox) 400 mg tablet Take 400 mg by mouth at bedtime. montelukast (Singulair) 10 MG tablet Take 10 mg by mouth in the morning. naproxen (Naprosyn) 500 MG tablet Take 500 mg by mouth if needed. Aparna 3-0.02 MG tablet Daily as needed ondansetron ODT (Zofran-ODT) 4 MG disintegrating tablet Take 8 mg by mouth Daily as needed riboflavin (vitamin B2) 100 mg tablet tablet Take 400 mg by mouth in the morning. rizatriptan (Maxalt) 10 MG tablet Take 1 tablet (10 mg) by mouth 1 (one) time if needed for migraine (may repeat x1) May repeat in 2 hours if unresolved. Do not exceed 30 mg in 24 hours. 9 tablet 2 SUMAtriptan (Imitrex) 100 MG tablet Take 1 tablet (100 mg) by mouth 1 (one) time if needed for migraine (may repeat x1) for up to 27 doses. (Patient not taking: Reported on 06/10/2023) 9 tablet 2 No current facility-administered medications on file prior to visit. Past Medical History: Diagnosis Date Back pain Migraine (CMS/HCC) Past Surgical History: Procedure Laterality Date TONSILLECTOMY WISDOM TOOTH EXTRACTION Family History Problem Relation Name Age of Onset Migraines Mother Social History Tobacco Use Smoking status: Never Smokeless tobacco: Never Substance Use Topics Alcohol use: Never ALLERGIES: Other REVIEW OF SYSTEMS: General: Appetite change: denies. Chills: denies. Fever: denies. Allergy/Immunology: Unusual rection to medications, food, animals or insects reaction: denies. Ophthalmologic: Visual acuity change: denies. ENT: Decreased hearing: denies. Endocrine: Weight loss: denies. Respiratory: Cough: denies. Wheezing: denies. Cardiovascular: Chest pain: denies. Palpitations: denies. Gastrointestinal: Abdominal pain: denies. Difficulty swallowing: denies Hematology: Bleeding problems: denies. Genitourinary: Painful urination: denies. Musculoskeletal: Joint pain: denies. Joint edema: denies. Skin: Rash: denies. Neurologic: Ataxia: denies, Tremor: denies. Psychiatric Suicidal thoughts: denies. Also see HPI for elements of ROS documented therein and for details of positive findings, which shall supersede the foregoing. OBJECTIVE: Objective There were no vitals filed for this visit. There is no height or weight on file to calculate BMI. Examination: General Exam: pleasant, well nourished, well developed, in no acute distress Head: normocephalic, atraumatic Eyes: extraocular movement intact (EOMI), pupils equal, round, reactive to light, upper eyelids normal , lower eyelids normal Ears: no obvious hearing deficit Nose: Nares patent Neck/Throat: neck supple, full range of motion Oral Cavity: mucosa moist Skin: warm and dry Heart: no murmurs, regular rate and rhythm, S1, S2 normal Lungs: clear to auscultation bilaterally, good air movement, no wheezes, rales, rhonci, speaks in full sentences Chest: normal shape and expansion Abdomen: bowel sounds present, soft, nontender, nondistended, no guarding or rigidity Extremities: no edema, no cyanosis Musculoskeletal: no swelling or deformity Neurologic: nonfocal, alert and oriented, cognitive exam grossly normal, cranial nerves 2-12 grossly intact, motor strength 5/5 bilateral symmetrically, no drift, coordination intact, sensory exam intact, gait normal Psych: pleasant, cooperative, good eye contact, speech clear, judgement and insight good ASSESSMENT/PLAN: 1. Migraine without aura and without status migrainosus, not intractable (CMS/HCC) Start nurtec prn, denied need for abortive tx Past tx: imitrex, maxalt - Rimegepant Sulfate (Nurtec) 75 MG tablet dispersible; Take 75 mg by mouth Daily as needed (1 tablet daily as needed for onset of migraine, max 1 dose in 24 hours.) Dispense: 8 tablet; Refill: 2 Pt has been fully educated on their diagnosis, treatment options, follow up plan, and return instructions. documented in this encounter [facility] Evaluation note No assessment inform ation available [facility] Work Phone: Evaluation note Diagnosis Migraine without aura and without status migrainosus, not intractable (CMS/HCC)- Primary documented in this encounter [facility]* Diagnosis Migraine without aura and without status migrainosus, not intractable (CMS/HCC)- Primary documented in this encounter [facility]* Diagnosis Migraine without aura and without status migrainosus, not intractable- Primary documented in this encounter [facility]* Diagnosis Migraine without aura and without status migrainosus, not intractable- Primary documented in this encounter [facility] Summary Purpose Family History No Family History Records Found Relationship Condition Age at Onset Recorded Date/T cindy Not Specified Hypertension Unknown Advance Directives No Advanced Directives Records FoundNo Advanced Directives Records FoundNo Advanced Directives Records FoundNo Advanced Directives Records FoundNo Advanced Directives Records Found Chief Complaint and Reason for Visit Chief Complaint Migraine without aur a, not intractable, without st Reason for Referral Specialty Diagnoses / Procedures Referred By Contac t Referred To Contact Diagnoses Migraine without aura and without status migrainosus, not intractable (CMS/HCC) Micky [facility] [address] [place] [address] Referral ID Status Reason Start Date Expiration Date V isits Requested Visits Authorized [id number] Pending Review 1 1 Additional Source Comments INFORMATION SOURCE (unrecogn ized section and content) DATE CREATED AUTHOR 12/12/2017 [facility] DATE CREATED AUTHOR AUTHOR'S ORGANIZ ATION 05/11/2024 [facility] EPIC DATE CREATED AUTHOR AUTHOR'S ORGANIZ ATION 07/04/2024 [facility] DATE CREATED AUTHOR AUTHOR'S ORGANIZ ATION 01/28/2025 [facility] DATE CREATED AUTHOR AUTHOR'S ORGANIZ ATION 04/25/2025 [facility] Care Teams (unrecognized sec tion and content) Team Status: Active Member Role Status Dates Dr. Melina Valle MD Family Provider Active Dr. Papi Packer MD Primary Care Provider Active Team Status: Inactive Member Role Status Dates Dr. Violet Solis MD Attending Provider, Referring Provider Active Dr. Papi Packer MD Primary Care Provider Active Goals (unrecognized section and content) Goals may be documented in a n alternate section Reason for Visit (unrecogniz ed section and content) Reason Comments New Patient Migraines Reason Onset Date Comments Prior Authorization 08/06/2024 Nurtec 75 MG tablet dispersible Reason Comments Follow-up Migraine FOR RECORDS PERTAINING TO PATIENTS WHO ARE OR HAVE BEEN ENROLLED IN A CHEMICAL DEPENDENCY/SUBSTANCEABUSE PROGRAM, SOME INFORMATION MAY BE OMITTED. This clinical summary was aggregated from multiple sources. Caution should be exercised in using it in the provision of clinical care. This summary normalizes information from multiple sources, and as a consequence, information in this document may materially change the coding, format and clinical context of patient data. In addition, data may be omitted in some cases. CLINICAL DECISIONS SHOULD BE BASED ON THE PRIMARY CLINICAL RECORDS. [facility] [employer] [facility] provides no warranty or guarantee of the accuracy or completeness of information in this document.
== END | disposition home or self-care (01) ==
LOC: LABSPEC 16:55
PROVIDERS: PCP Pediatrics; Visit Provider Nurse Practitioner Family
DX: A74.9 Chlamydial infection, unspecified (principal)
CPT/HCPCS: 87491; 87591